=== PATIENT | female | born 1945 | race Caucasian/White ===

== ENCOUNTER 2022-08-12 13:54 | Emergency (ER) | payer MEDICARE, SELFPAY ==
[2022-08-12 14:03] VITALS: BP 149/66; PULSE 72; RESP 16; TEMP 36.8; O2SAT 97; BMI 24.7
--- NOTE | 2022-08-12 14:04 | HMH.EDGENADL ---
Discharge Plan Disposition Patient Disposition: Home, Self-Care Condition: Good Referrals Follow up/Referrals: Violette Benjamin MD [Primary Care Provider] - 7-14 days (for suture removal) Activity Restrictions/Add. Instructions Additional Instructions/Restrictions: keep wound clean and dry, and follow up in 7 days for suture removal in the ED or at your PCP office. Clinical Impressions Clinical Impression: Laceration Instructions Patient Instructions: DI for Laceration Repair Discharge ED Provider: Kirk Clark General Adult HPI General Chief complaint: Wound/Laceration Stated complaint: Sliced LT thumb w/ wire bound box machine helper @home 08/11 Time Seen by Provider: 08/12/22 14:04 History of Present Illness HPI narrative: 76-year-old [id number] female presents status post injury where she sliced the dorsum of her left thumb overlying the MCP with a wire bound box machine helper at home while breaking down boxes. Occurred just prior to arrival. States tetanus is up-to-date. There was moderate bleeding initially, and she reports she is on Coumadin. Currently bleeding is controlled, and there is about a 2 cm linear laceration at the base of the thumb. She denies any numbness, tingling, weakness of the thumb or hand denies any other injuries. Related Data Allergies Allergy/AdvReac Type Severity Reaction Status Date / Time No Known Allergies Allergy Verified 08/12/22 15:17 [facility] Social History Smoking Status: Never smoker alcohol intake: never current occupational status: other Travel in the last 8 weeks: None ROS Obtained: Yes Systems reviewed as appropriate & no additional complaints except as documented Constitutional Constitutional: Reports system reviewed and no additional complaints, except as documented Eyes Eyes: Reports system reviewed and no additional complaints, except as documented ENT Ears, Nose, Mouth, and Throat: Reports system reviewed and no additional complaints, except as documented Cardiovascular Cardiovascular: Reports system reviewed and no additional complaints, except as documented Respiratory Respiratory: Reports system reviewed and no additional complaints, except as documented Gastrointestinal Gastrointestingal: Reports system reviewed and no additional complaints, except as documented Genitourinary Female Genitourinary: Reports system reviewed and no additional complaints, except as documented Musculoskeletal Musculoskeletal: Reports system reviewed and no additional complaints, except as documented Integumentary/Breasts Skin/Breast: Reports system reviewed and no additional complaints, except as documented Neurologic Neurologic: Reports system reviewed and no additional complaints, except as documented Endocrine Endocrine: Reports system reviewed and no additional complaints, except as documented Hematologic/Lymphatic Henatologic/Lymphatic: Reports system reviewed and no additional complaints, except as documented Allergic/Immunologic Allergic/Immunologic: Reports system reviewed and no additional complaints, except as documented Physical Exam General General appearance: alert and in no apparent distress Head Head exam: atraumatic, normocephalic and normal inspection Eye Eye exam: Present normal appearance, PERRL and EOMI ENT ENT exam: Present normal exam, normal oropharynx, mucous membranes moist, TM's normal bilaterally and normal external ear exam Neck Neck exam: Present normal inspection, full ROM and trachea midline; Absent meningismus or lymphadenopathy Chest Chest inspection: Present normal inspection and symmetric chest wall rise; Absent tenderness Respiratory Respiratory exam: Present normal lung sounds bilaterally; Absent respiratory distress Cardiovascular Cardiovascular exam: Present regular rate and normal rhythm; Absent JVD Abdominal Exam Abdominal exam: Present soft and normal bowel sounds; Absent distention, tenderness o
[2022-08-12 16:02] VITALS: BP 135/65; PULSE 70; RESP 16; TEMP 36.8; O2SAT 98
== END 2022-08-12 16:04 | disposition home or self-care (01) ==
PROVIDERS: Emergency Provider Emergency Medicine; PCP Family Medicine
DX: S61.012A Laceration without foreign body of left thumb without damage to nail, initial encounter (principal); Z79.01 Long term (current) use of anticoagulants; W26.9XXA Contact with unspecified sharp object(s), initial encounter
CPT/HCPCS: 12001; 99283

== ENCOUNTER 2023-08-05 14:40 | Emergency (ER) | payer MEDICARE, SELFPAY ==
[2023-08-05 14:41] VITALS: BP 145/45; PULSE 65; RESP 21; TEMP 36.7; O2SAT 95; BMI 24.7
[2023-08-05 14:50] VITALS: BP 143/45; PULSE 59; O2SAT 95
--- NOTE | 2023-08-05 14:53 | CA_ITS ---
FINAL REPORT TECHNIQUE: Color Doppler, duplex Doppler and compression sonography of the right lower extremity venous system was performed. CLINICAL HISTORY: swelling of right foot x week without injury. Right hip pain COMPARISON: None FINDINGS: There is no evidence of deep venous thrombosis from the level of the groin to the calf. The veins are patent and compressible. IMPRESSION: No evidence of deep venous thrombosis right lower extremity. Reviewed, Interpreted and Dictated by Arturo Sigala III, MD Transcribed by Rica Bello Authenticated and [facility]
--- NOTE | 2023-08-05 14:54 | XR_ITS ---
FINAL REPORT CLINICAL HISTORY: Right ankle swelling/pain COMPARISON: None FINDINGS: RIGHT ANKLE: Three views of the right ankle were obtained. There is no acute fracture or dislocation. Joint spaces are intact. Vascular calcifications are noted. There is soft tissue swelling. IMPRESSION: Soft tissue swelling without acute bony abnormality. Reviewed, Interpreted and Dictated by Arturo Sigala III, MD Transcribed by Rica Bello Authenticated and [facility]
--- NOTE | 2023-08-05 14:54 | XR_ITS ---
FINAL REPORT CLINICAL HISTORY: Right foot swelling/pain COMPARISON: None FINDINGS: RIGHT FOOT: Three views of the right foot were obtained. There is no acute fracture or dislocation. There is mild degenerative change. Vascular calcifications are noted. IMPRESSION: No acute bony abnormality. Reviewed, Interpreted and Dictated by Arturo Sigala III, MD Transcribed by Rica Bello Authenticated and [facility]
--- NOTE | 2023-08-05 14:56 | HMH.EDGENADL ---
Discharge Plan Disposition Patient Disposition: Home, Self-Care Condition: Good Referrals Follow up/Referrals: Provider,Referral, [Primary Care Provider] - See instructions Activity Restrictions/Add. Instructions Additional Instructions/Restrictions: As discussed, your INR was elevated, we have elected, after discussion, to not get a sample of that fluid in your knee that we see, especially in light of your elevated INR, but I recommend you follow-up closely with your doctor and please return if you have worsening pain Clinical Impressions Clinical Impression: Localized swelling of right lower extremity, Acute pain of right lower extremity Instructions Patient Instructions: DI for Cellulitis -- Adult, DI for Deep Vein Thrombosis Discharge ED Provider: Espinoza Mayorga Adult HPI <Alana Cisneros DO - Last Filed: 08/05/23 15:48> General Chief complaint: Extremity Problem,Nontraumatic Stated complaint: Right leg pain Time Seen by Provider: 08/05/23 14:49 History of Present Illness HPI narrative: This patient is a 77-year-old female who reports a 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 She states that her right foot and ankle of been swollen for approximately 1 week. She denies any trauma, wounds, or other injuries. She states that it is become difficult to put weight on it, which prompted her to come into the ER today. She notes that she was experiencing similar symptoms in the left lower extremity approximate month ago, and she did not get evaluated for this. Her symptoms resolved spontaneously. She denies any fevers, chills, chest pain, shortness of breath, numbness, tingling, or other concerns. She is still able to range her foot and ankle. She denies any known history of gout. Related Data Allergies Allergy/AdvReac Type Severity Reaction Status Date / Time No Known Allergies Allergy Verified 08/12/22 15:17 PFSH <Alana Cisneros DO - Last Filed: 08/05/23 15:48> [facility] Disclaimer: The information contained in this section may have been updated after the patient was seen, as this information can be updated by other users. Social History Smoking Status: Former smoker alcohol intake: never current occupational status: other Travel in the last 8 weeks: None <Alana Cisneros - Last Filed: 08/05/23 15:48> ROS Obtained: Yes All systems reviewed & no additional complaints except as documented Physical Exam <Alana Cisneros - Last Filed: 08/05/23 15:48> General General appearance: alert and in no apparent distress Head Head exam: atraumatic and normocephalic Eye Eye exam: Present normal appearance, PERRL and EOMI ENT ENT exam: Present normal exam, normal oropharynx, mucous membranes moist and normal external ear exam Neck Neck exam: Present normal inspection, full ROM and trachea midline; Absent tenderness Chest Chest inspection: Present normal inspection and symmetric chest wall rise; Absent tenderness Respiratory Respiratory exam: Present normal lung sounds bilaterally; Absent respiratory distress, wheezes, stridor or accessory muscle use Cardiovascular Cardiovascular exam: Present regular rate and normal rhythm Abdominal Exam Abdominal exam: Present soft; Absent distention, tenderness or guarding Extremities Exam Extremities exam: Present full ROM, normal capillary refill and edema (Right lower extremity); Absent tenderness or calf tenderness Expanded Lower Extremity Exam Right: Hip/Pelvis exam: Present normal inspection and full ROM; Absent tenderness or swelling Upper leg exam: Present normal inspection and full ROM; Absent tenderness or swelling Knee exam: Present full ROM and swelling; Absent tenderness Lower leg exam: Present swelling; Absent tende
--- NOTE | 2023-08-05 15:07 | PC.NURSE ---
instructed patient to change into a gown; US @ .
[2023-08-05 16:03] LABS: Lactic Acid 1.3 mmol/L (0.7-2.1)
[2023-08-05 16:04] LABS: Alanine Aminotransferase 79 U/L (12-78); Albumin Level 3.9 g/dl (3.5-5.0); Albumin/Globulin Ratio 0.9 (1.1-1.8); Alkaline Phosphatase 135 U/L (38-126); Anion Gap 10.3 mEq/L (5-15); Aspartate Amino Transferase 104 U/L (14-36); Bilirubin,Total 0.8 mg/dl (0.2-1.3); Blood Urea Nitrogen 15 mg/dl (7-17); Calcium 9.3 mg/dl (8.4-10.2); Carbon Dioxide 27 mmol/L (22.0-30.0); Chloride 100 mmol/L (98-107); Creatinine Clearance Estimated 49 mL/min (50-200); Estimated Glomerular Filt Rate 82 ml/min (>60); GFR (African American) 99 ML/MIN (>60); Globulin 4.2 g/dL (1.3-3.2); Glucose 98 mg/dl (74-100); Potassium 3.3 mmoL/L (3.5-5.1); Sodium 134 mmol/L (136-145); Total Protein,Serum 8.1 g/dl (6.3-8.2); Uric Acid 5.5 mg/dl (2.5-6.2)
[2023-08-05 16:06] LABS: Basophils # 0.1 K/mm3 (0-0.2); Basophils % 0.5 % (0.1-2.0); Eosinophils # 0.2 K/mm3 (0.0-0.4); Eosinophils % 1.4 % (0.1-12.0); Hematocrit 37.8 % (37.0-47.0); Hemoglobin 11.6 g/dL (12.2-16.2); Lymphocytes # 2.4 K/mm3 (0.7-4.5); Lymphocytes % 20.3 % (10-50); Mean Corpuscular HGB Conc 30.8 g/dL (31.8-35.4); Mean Corpuscular Hemoglobin 24.9 pg (27.0-31.2); Mean Corpuscular Volume 80.8 fl (81-99); Mean Platelet Volume 9.5 fl (7.4-10.4); Neutrophils # 7.9 K/mm3 (1.8-7.8); Neutrophils % 68.7 % (37.0-80.0); Platelet Count 317 K/mm3 (142-424); Red Blood Count 4.68 M/mm3 (4.20-5.40); Red Cell Distribution Width 16.3 % (11.5-17.5); White Blood Count 11.5 K/mm3 (4.8-10.8)
[2023-08-05 16:30] LABS: INR 6.34 (0.9-1.1)
[2023-08-05 16:31] LABS: NT Pro Brain Natriuretic Pep. 756 pg/mL (0-450); Prothrombin Time 60.7 seconds (10.1-12.5)
[2023-08-05 16:37] VITALS: BP 129/57; PULSE 63; O2SAT 94
--- NOTE | 2023-08-05 16:37 | PC.NURSE ---
notified of PT of 60.7 and INR 6.34
--- NOTE | 2023-08-05 16:43 | PC.NURSE ---
Rounded on pt asked if she could have something to eat she was starving told her i would have to ask
--- NOTE | 2023-08-05 16:44 | PC.NURSE ---
said it was okay for pt to eat
--- NOTE | 2023-08-05 16:45 | PC.NURSE ---
Rounded on patient; call light within reach nothing needed at this time
--- NOTE | 2023-08-05 16:45 | PC.NURSE ---
Pt received two chicken salad sandwiches and bag of chips
[2023-08-05 16:59] LABS: Erythrocyte Sedimentation Rate 116 mm/hr (0-30)
[2023-08-05 17:01] VITALS: BP 134/44; PULSE 58; O2SAT 95
[2023-08-05 17:33] VITALS: BP 130/43; PULSE 70; RESP 17; TEMP 36.7; O2SAT 94
[2023-08-07 09:59] LABS: C-Reactive Protein 92.5 mg/L (0-4)
== END 2023-08-05 17:38 | disposition home or self-care (01) ==
PROVIDERS: Emergency Medicine; Emergency Provider Emergency Medicine
DX: M79.661 Pain in right lower leg (principal); R22.41 Localized swelling, mass and lump, right lower limb; R79.1 Abnormal coagulation profile; I10 Essential (primary) hypertension; E78.5 Hyperlipidemia, unspecified; Z95.2 Presence of prosthetic heart valve; Z79.01 Long term (current) use of anticoagulants; Z87.891 Personal history of nicotine dependence
CPT/HCPCS: 73610; 73630; 80053; 83605; 83880; 84550; 85025; 85610; 85651; 86140; 87040; 93971; 99284

== ENCOUNTER 2023-08-08 18:00 | Emergency (ER) | payer MEDICARE, SELFPAY ==
[2023-08-08] VITALS (7 sets, daily range): BP systolic 120–151; BP diastolic 40–66; PULSE 63–76; RESP 16–20; TEMP 36.9; O2SAT 92–98; BMI 23.0
--- NOTE | 2023-08-08 18:18 | PC.NURSE ---
Dr. Alejandra at BS for pt eval
[2023-08-08 18:24] LABS: Basophils # 0.1 K/mm3 (0-0.2); Basophils % 0.6 % (0.1-2.0); Eosinophils # 0.3 K/mm3 (0.0-0.4); Eosinophils % 2.3 % (0.1-12.0); Hematocrit 37.2 % (37.0-47.0); Hemoglobin 11.4 g/dL (12.2-16.2); Lymphocytes # 2.6 K/mm3 (0.7-4.5); Lymphocytes % 21.6 % (10-50); Mean Corpuscular HGB Conc 30.7 g/dL (31.8-35.4); Mean Corpuscular Volume 81.6 fl (81-99); Mean Platelet Volume 8.6 fl (7.4-10.4); Monocytes # 0.8 K/mm3 (0.1-1.0); Monocytes % 6.8 % (1.7-9.3); Neutrophils # 8.2 K/mm3 (1.8-7.8); Neutrophils % 68.6 % (37.0-80.0); Platelet Count 341 K/mm3 (142-424); Red Blood Count 4.56 M/mm3 (4.20-5.40); Red Cell Distribution Width 16.2 % (11.5-17.5); White Blood Count 11.9 K/mm3 (4.8-10.8)
--- NOTE | 2023-08-08 18:28 | HMH.EDGENADL ---
Discharge Plan Disposition Patient Disposition: Home, Self-Care Activity Restrictions/Add. Instructions Additional Instructions/Restrictions: Please hold 1 dose of Coumadin follow-up with ear nose and throat doctor on Wednesday to have your packing removed. A packet with the phone number for the ENT clinic has been provided please call first thing in the morning make an appointment on Wednesday or next available appointment. If you are unable to get in on Wednesday please follow-up the primary care doctor to have the packing removed. Return with any worsening bleeding. Additionally we have given you information for the Coumadin clinic you may call make an appointment for the next available timeframe. Clinical Impressions Clinical Impression: Acute anterior epistaxis, Supratherapeutic INR Instructions Patient Instructions: DI for Nosebleed Discharge ED Provider: Yuki Alejandra General Adult HPI General Chief complaint: Epistaxis Stated complaint: epistaxis Time Seen by Provider: 08/08/23 18:18 Mode of Arrival: EMS Source of Information: Patient Limitations: No Limitations Description of Symptoms (Recalled from ER Triage Doc. by RN): Presents to ED with c/o nosee bleed that started yesterday intermittently. Patient reports it started again today and has not stopped. Bleeding controlled upon arrival. Patient is on Warfarin. Last PT/INR check was wiht INR of 6. Denies any cardiac or respiratory symptoms. History of Present Illness HPI narrative: Patient is a 77-year-old female here with left anterior epistaxis from history after having a supratherapeutic INR of 6 recently. She did not hold any of her warfarin was not given any vitamin K products etc. Patient denies any bleeding elsewhere. She put some tissue into her left anterior nare which temporarily stopped her bleeding prior to arrival. Related Data Allergies Allergy/AdvReac Type Severity Reaction Status Date / Time No Known Allergies Allergy Verified 08/12/22 15:17 [facility] Disclaimer: The information contained in this section may have been updated after the patient was seen, as this information can be updated by other users. Social History Smoking Status: Former smoker alcohol intake: never current occupational status: other Travel in the last 8 weeks: None ROS Obtained: Yes All systems reviewed & no additional complaints except as documented Physical Exam General General appearance: alert ENT ENT exam: Present other (Left anterior septal active bleeding) Respiratory Respiratory exam: Present normal lung sounds bilaterally Cardiovascular Cardiovascular exam: Present regular rate; Absent tachycardia Neurological Exam Neurological exam: Present alert and oriented X3 Medical Decision Making Amol Inquiry Pt receiving controlled substance: No Vital Signs: 08/08/23 18:01 08/08/23 18:31 08/08/23 19:00 Temperature 98.5 F Temperature Source Oral Pulse Rate 76 64 Pulse Rate [Right] 63 Respiratory Rate 16 20 16 Blood Pressure 133/61 149/66 H Blood Pressure [Right Arm] 120/48 L Blood Pressure Mean 85 Blood Pressure Mean [Right Arm] 72 Blood Pressure Source [Right Arm] Automatic Cuff Blood Pressure Position [Right Arm] Sitting 02 Sat by Pulse Oximetry 92 L 96 96 Oxygen Delivery Method Room Air Room Air 08/08/23 20:00 08/08/23 20:02 08/08/23 20:31 Temperature Temperature Source Pulse Rate 64 66 72 Pulse Rate [Right] Respiratory Rate 18 16 17 Blood Pressure 149/66 H 149/66 H 134/42 L Blood Pressure [Right Arm] Blood Pressure Mean 93 72 Blood Pressure Mean [Right Arm] Blood Pressure Source [Right Arm] Blood Pressure Position [Right Arm] 02 Sat by Pulse Oximetry 96 98 98 Oxygen Delivery Method Room Air Room Air Lab Data Lab results reviewed: Yes I reviewed the patient's lab results. Lab Results 08/08/23 18:15: WBC 11.9 H,
[2023-08-08 18:30] LABS: INR 3.62 (0.9-1.1); Prothrombin Time 35.9 seconds (10.1-12.5)
--- OUTSIDE RECORDS SUMMARY | 2023-08-08 18:40 | XMS_ITS | Continuity of Care Document ---
Author Name Unknown Organization [facility] Address [address] [place] [address] Phone Care Team Providers Care Tracing Lathe Set Up Operator Name Role Phone Graeme Monroy MD Unavailable Unavailable Allergies, Adverse Reactions, Alerts Substance Reaction Status Criticality alendronate sodium makes stomach upset Active No Information Medications Medication Instructions Dosage Effective Dates (start - stop) Status Comments Vigamox 0.5 % eye drops instill 1 drop by ophthalmic route 4 times every day into the right eye starting 1 day prior to surgery. - Active Generic ok, please call if too expensive or not covered. Vigamox 0.5 % eye drops instill 1 drop by ophthalmic route 4 times every day into the left eye starting 1 day prior to surgery. - Active Generic ok - please call if too expensive or not covered. Pred Forte 1 % eye drops,suspension instill 1 drop by ophthalmic route 4 times every day into right eye starting 1 day prior to surgery - Active ok for generic if too expensive Pred Forte 1 % eye drops,suspension instill 1 drop by ophthalmic route 4 times every day into left eye starting 1 day prior to surgery - Active generic ok. Please call if too expensive or not covered. latanoprost 0.005 % eye drops instill 1 drop by ophthalmic route every evening into both eyes 1 drop - Active Refresh Tears 0.5 % eye drops instill 1 drop by ophthalmic route 4 times every day into both eyes 1 neelam
--- NOTE | 2023-08-08 18:46 | PC.NURSE ---
Pt concerned about her nose continuing to bleed. Dr. Alejandra notified.
--- NOTE | 2023-08-08 19:14 | PC.NURSE ---
patient assisted to dmitri james
--- NOTE | 2023-08-08 20:04 | PC.NURSE ---
V/O per MD for 2mg Morphine IVP
--- NOTE | 2023-08-08 20:08 | PC.NURSE ---
Rounded on patient; nothing needed at this time. Call light within reach of patient
--- NOTE | 2023-08-08 20:42 | PC.NURSE ---
Pain reassessment: patient is still complaining of 9/10 pain. MD notified
== END 2023-08-08 21:09 | disposition home or self-care (01) ==
PROVIDERS: Emergency Provider Student in an Organized Health Care Education/Training Program
DX: R04.0 Epistaxis (principal); R79.1 Abnormal coagulation profile; Z79.01 Long term (current) use of anticoagulants; Z95.2 Presence of prosthetic heart valve
CPT/HCPCS: 30903; 85025; 85610; 96374; 96375; 99284; J2405

== ENCOUNTER → 2023-08-10 11:59 | Outpatient (CLI) | payer MEDICARE, SELFPAY ==
[2023-08-10 12:41] LABS: Activated Partial Thrombo Time 53.1 seconds (22.8-30.6); INR 3.75 (0.9-1.1); Prothrombin Time 37.1 seconds (10.1-12.5)
== END ==
PROVIDERS: Visit Provider Nurse Practitioner
DX: R04.0 Epistaxis (principal); R79.1 Abnormal coagulation profile; M79.604 Pain in right leg
CPT/HCPCS: 36415; 85610; 85730

== ENCOUNTER 2023-08-20 12:48 | Outpatient (CLI) | payer MEDICARE, SELFPAY ==
[2023-08-20 13:55] LABS: Prothrombin Time 38.5 seconds (10.1-12.5)
[2023-08-20 14:08] LABS: PHA INR Fingerstick 4.3 (0.9-1.1)
== END 2023-08-20 14:16 ==
PROVIDERS: PCP Family Medicine; Visit Provider Family Medicine
DX: R79.1 Abnormal coagulation profile (principal); Z79.01 Long term (current) use of anticoagulants; Z51.81 Encounter for therapeutic drug level monitoring
CPT/HCPCS: 36415; 85610; 99211; G0463

== ENCOUNTER 2023-08-27 12:56 | Outpatient (CLI) | payer MEDICARE, SELFPAY ==
[2023-08-27 14:05] LABS: PHA INR Fingerstick 2.5 (0.9-1.1)
== END 2023-08-27 14:23 ==
LOC: ACC 12:58
PROVIDERS: PCP Family Medicine; Visit Provider Family Medicine
DX: R79.1 Abnormal coagulation profile (principal)
CPT/HCPCS: 85610; 99211; G0463

== ENCOUNTER 2023-09-10 11:31 | Outpatient (CLI) | payer MEDICARE, SELFPAY | END 2023-09-10 14:14 | LOC: ACC 11:31 | PROVIDERS: PCP Family Medicine; Visit Provider Family Medicine | DX: Z79.01 Long term (current) use of anticoagulants (principal); Z51.81 Encounter for therapeutic drug level monitoring | CPT/HCPCS: 85610; 99211; G0463 ==

== ENCOUNTER 2023-10-08 11:28 | Outpatient (CLI) | payer MEDICARE, SELFPAY ==
[2023-10-08 15:53] LABS: PHA INR Fingerstick 2.8 (0.9-1.1)
== END 2023-10-08 16:09 ==
LOC: ACC 11:29
PROVIDERS: PCP Family Medicine; Visit Provider Family Medicine
DX: Z79.01 Long term (current) use of anticoagulants (principal); Z51.81 Encounter for therapeutic drug level monitoring
CPT/HCPCS: 85610; 99211; G0463

== ENCOUNTER 2024-01-31 11:29 | Outpatient (CLI) | payer MEDICARE, SELFPAY ==
[2024-01-31 15:05] LABS: PHA INR Fingerstick 1.7 (0.9-1.1)
== END 2024-01-31 15:25 ==
LOC: ACC 11:31
PROVIDERS: PCP Family Medicine; Visit Provider Family Medicine
DX: Z79.01 Long term (current) use of anticoagulants (principal); Z51.81 Encounter for therapeutic drug level monitoring
CPT/HCPCS: 85610; 99211; G0463

== ENCOUNTER 2024-02-25 13:00 | Outpatient (CLI) | payer MEDICARE, SELFPAY ==
[2024-02-25 13:56] LABS: PHA INR Fingerstick 1.9 (0.9-1.1)
== END 2024-02-25 14:06 ==
LOC: ACC 13:01
PROVIDERS: PCP Family Medicine; Visit Provider Family Medicine
DX: Z79.01 Long term (current) use of anticoagulants (principal); Z51.81 Encounter for therapeutic drug level monitoring
CPT/HCPCS: 85610; 99211; G0463

== ENCOUNTER 2024-03-17 13:31 | Outpatient (CLI) | payer MEDICARE, SELFPAY ==
[2024-03-17 14:50] LABS: PHA INR Fingerstick 1.9 (0.9-1.1)
== END 2024-03-17 15:07 ==
PROVIDERS: PCP Family Medicine; Visit Provider Family Medicine
DX: Z79.01 Long term (current) use of anticoagulants (principal); Z51.81 Encounter for therapeutic drug level monitoring
CPT/HCPCS: 85610; 99211; G0463

== ENCOUNTER 2024-04-07 13:44 | Outpatient (CLI) | payer MEDICARE, SELFPAY | END 2024-04-07 15:03 | LOC: ACC 13:45 | PROVIDERS: PCP Family Medicine; Visit Provider Family Medicine | DX: Z79.01 Long term (current) use of anticoagulants (principal); Z95.2 Presence of prosthetic heart valve | CPT/HCPCS: 85610; 99211; G0463 ==

== ENCOUNTER 2024-06-12 14:38 | Outpatient (CLI) | payer MEDICARE, SELFPAY ==
[2024-06-12 21:29] LABS: Basophils # 0.1 K/mm3 (0-0.2); Basophils % 0.5 % (0.1-2.0); Eosinophils # 0.3 K/mm3 (0.0-0.4); Eosinophils % 2.1 % (0.1-12.0); Hematocrit 39.2 % (37.0-47.0); Hemoglobin 12.5 g/dL (12.2-16.2); Lymphocytes # 3.2 K/mm3 (0.7-4.5); Lymphocytes % 24.9 % (10-50); Mean Corpuscular HGB Conc 31.9 g/dL (31.8-35.4); Mean Corpuscular Hemoglobin 27.7 pg (27.0-31.2); Mean Corpuscular Volume 86.9 fl (81-99); Mean Platelet Volume 10.9 fl (7.4-10.4); Monocytes # 0.8 K/mm3 (0.1-1.0); Monocytes % 6.1 % (1.7-9.3); Neutrophils # 8.6 K/mm3 (1.8-7.8); Neutrophils % 66.4 % (37.0-80.0); Platelet Count 201 K/mm3 (142-424); Red Blood Count 4.51 M/mm3 (4.20-5.40); Red Cell Distribution Width 17.5 % (11.5-17.5); White Blood Count 12.9 K/mm3 (4.8-10.8)
[2024-06-12 21:53] LABS: Alanine Aminotransferase 19 U/L (12-78); Albumin Level 4.1 g/dl (3.5-5.0); Albumin/Globulin Ratio 1.1 (1.1-1.8); Alkaline Phosphatase 94 U/L (38-126); Anion Gap 10.4 mEq/L (5-15); Aspartate Amino Transferase 38 U/L (14-36); Bilirubin,Total 0.5 mg/dl (0.2-1.3); Blood Urea Nitrogen 14 mg/dl (7-17); Calcium 9.8 mg/dl (8.4-10.2); Carbon Dioxide 29 mmol/L (22.0-30.0); Chloride 102 mmol/L (98-107); Estimated Glomerular Filt Rate 70 ml/min (>60); GFR (African American) 84 ML/MIN (>60); Globulin 3.7 g/dL (1.3-3.2); Glucose 83 mg/dl (74-100); Potassium 4.4 mmoL/L (3.5-5.1); Sodium 137 mmol/L (136-145); Total Protein,Serum 7.8 g/dl (6.3-8.2)
== END 2024-06-12 23:59 | disposition home or self-care (01) ==
LOC: LAB.DROPOF 06-13 15:12
PROVIDERS: PCP Family Medicine; Visit Provider Family Medicine
DX: R53.1 Weakness (principal)
CPT/HCPCS: 80050; 80053; 84443; 85025

== ENCOUNTER 2024-07-17 13:04 | Emergency (ER) | payer MEDICARE, SELFPAY ==
[2024-07-17 13:04] VITALS: BP 163/82; PULSE 63; RESP 16; TEMP 36.7; O2SAT 90; BMI 23.6
--- NOTE | 2024-07-17 13:51 | PC.NURSE ---
Dr. Cisneros at bedside
--- NOTE | 2024-07-17 13:53 | HMH.EDGENADL ---
Discharge Plan Disposition Patient Disposition: Home, Self-Care Chief Complaint: Fall Prescriptions Prescriptions: No Action mirtazapine 7.5 mg tablet PO DAILY furosemide 40 mg tablet PO DAILY Patient Comments: TAKE 1 TABLET BY MOUTH ONCE DAILY. bupropion HCl 150 mg tablet extended release 24 hr PO DAILY potassium chloride 10 mEq tablet,ER particles/crystals PO oxybutynin chloride 5 mg tablet PO DAILY Patient Comments: TAKE 1 TABLET BY MOUTH 3 TIMES DAILY. losartan 25 mg tablet PO DAILY trazodone 100 mg tablet PO DAILY sucralfate 1 gram tablet PO ONCE atorvastatin 10 mg tablet PO DAILY Patient Comments: TAKE 1 TABLET BY MOUTH DAILY famotidine [Pepcid] 40 mg tablet 40 mg PO BID Qty: 180 3RF warfarin 4 mg tablet 4 mg PO DAILY Qty: 30 10RF Referrals Follow up/Referrals: Sawyer Betancourt MD [Primary Care Provider] - See instructions Clinical Impressions Clinical Impression: Fall, Acute pain of right hip, Low back pain, Multiple transverse process fractures, Closed wedge compression fracture of T6 vertebra Print Language Print Language: Icelandic Discharge ED Provider: Bijan Chao General Adult HPI <Alana Cisneros DO - Last Filed: 07/17/24 15:56> General Chief complaint: Fall Stated complaint: Pain Time Seen by Provider: 07/17/24 13:48 Mode of Arrival: EMS Source of Information: Patient Limitations: No Limitations Description of Symptoms (Recalled from ER Triage Doc. by RN): Reports tripping and falling last night and hitting her right hip on the bathtub. Complaint of right hip pain. History of Present Illness HPI narrative: This patient is a 78-year-old female with a history of mitral valve replacement with mechanical valve on Coumadin presenting to the emergency department for evaluation concern for low back and right hip pain after a mechanical ground-level fall that happened last night. She states that she went to the bathroom in the dark and she is not sure what she tripped on, but she fell. She did not hit her head or lose consciousness. She hit her right hip on the bathtub. She was well prior to this. She has not walked well since then. EMS arrived with the patient who noted she was stable en route Related Data Home Medications ?Medication ?Instructions ?Recorded ?Confirmed atorvastatin 10 mg tablet mg PO DAILY 08/10/23 06/26/24 bupropion HCl 150 mg 24 hr tablet, mg PO DAILY 10/10/23 08/26/24 extended release furosemide 40 mg tablet mg PO DAILY 08/10/23 06/26/24 losartan 25 mg tablet mg PO DAILY 08/10/23 06/26/24 mirtazapine 7.5 mg tablet mg PO DAILY 08/10/23 06/26/24 oxybutynin chloride 5 mg tablet mg PO DAILY 08/10/23 06/26/24 potassium chloride 10 mEq meq PO 08/10/23 06/26/24 tablet,extended release(part/cryst) sucralfate 1 gram tablet PO ONCE 08/10/23 06/26/24 trazodone 100 mg tablet mg PO DAILY 08/10/23 06/26/24 Previous Rx's ?Medication ?Instructions ?Recorded warfarin 4 mg tablet 4 mg PO DAILY #30 tabs 09/09/23 famotidine 40 mg tablet (Pepcid) 40 mg PO BID #180 tabs 06/26/24 Allergies Allergy/AdvReac Type Severity Reaction Status Date / Time No Known Allergies Allergy Verified 06/26/24 13:35 [facility] <Alana Cisneros DO - Last Filed: 07/17/24 15:56> [facility] Disclaimer: The information contained in this section may have been updated after the patient was seen, as this information can be updated by other users. Social History Smoking Status: Never smoker alcohol intake: never current occupational status: other Travel in the last 8 weeks: None <Alana Cisneros DO - Last Filed: 07/17/24 15:56> ROS Obtained: Yes All systems reviewed & no additional complaints except as documented Physical Exam <Alana Cisneros DO - Last Filed: 07/17/24 15:56> General General appearance: alert and in no apparent distress Head Head exam: atraumatic and normocephalic Eye Eye exam: Present normal appearance, PERRL and EOMI ENT ENT exam: Present normal exam, normal oropharynx, mucous membranes moist and normal external ear exam Neck Neck exam: Present normal inspection, full ROM and trachea midline; Absent tenderness Chest Chest inspection: Present normal inspection and symmetric chest wall rise; Absent tenderness Respiratory Respiratory exam: Present normal lung sounds bilaterally; Absent respiratory distress, wheezes, stridor or accessory muscle use Cardiovascular Cardiovascular exam: Present regular rate and normal rhythm Abdominal Exam Abdominal exam: Present soft; Absent distention, tenderness or guarding Extremities Exam Extremities exam: Present full ROM, tenderness (Right hip. All compartments soft. Neurovascularly intact distally.) and normal capillary refill; Absent edema Back Exam Back exam: Present full ROM and tenderness (Lumbar spine. No step-offs or deformities.) Neurological Exam Neurological exam: Present alert, oriented X3, CN II-XII intact and normal gait; Absent motor sensory deficit Psychiatric Psychiatric exam: Present normal affect and normal mood Skin Skin exam: Present warm and dry Medical Decision Making <Alana Cisneros, DO - Last Filed: 07/17/24 15:56> Medical Records Medical records reviewed: Yes I reviewed the patient's medical records. Amol Inquiry Pt receiving controlled substance: No Vital Signs: 07/17/24 13:04 07/17/24 16:55 Temperature 98.1 F Temperature Source Oral Pulse Rate 63 Pulse Rate [Radial] 63 Respiratory Rate 16 18 Blood Pressure 171/63 H Blood Pressure [Left Arm] 163/82 H Blood Pressure Mean [Left Arm] 109 Blood Pressure Source [Left Arm] Automatic Cuff Blood Pressure Position [Left Arm] Supine 02 Sat by Pulse Oximetry 90 L Oxygen Delivery Method Room Air Lab Data Lab results reviewed: Yes I reviewed the patient's lab results. Lab Results 07/17/24 14:21: WBC 11.9 H, RBC 4.40, Hgb 11.1 L, Hct 36.7 L, MCV 83.4, MCH 25.1 L, MCHC 30.1 L, RDW 17.7 H, Plt Count 177, MPV 9.6, Neut % (Auto) 79.3, Lymph % (Auto) 13.9, [place] % (Auto) 5.3, Eos % (Auto) 0.9, Baso % (Auto) 0.6, Neut # (Auto) 9.5 H, Lymph # (Auto) 1.7, [place] # (Auto) 0.6, Eos # (Auto) 0.1, Baso # (Auto) 0.1, PT 17.0 H, INR 1.59 H, APTT 33.0 H, Sodium 137, Potassium 3.7, Chloride 109 H, Carbon Dioxide 27, Anion Gap 4.7 L, BUN 11, Creatinine 0.60, Estimated Creat Clear 47, Estimated GFR 97, Est GFR ( Amer) 118, Glucose 92, Calcium 9.0, Total Bilirubin 0.7, AST 39 H, ALT 20, Alkaline Phosphatase 91, Total Protein 7.0, Albumin 3.8, Globulin 3.2, Albumin/Globulin Ratio 1.2 07/17/24 14:21 07/17/24 14:21 Orders (Tests/Meds): ED MEDICATIONS Discontinued Medications Generic Name Dose Route Start Last Admin Trade Name Freq PRN Reason Stop Dose Admin Hydrocodone Bitart/Acetaminophen 1 tab 07/17/24 15:11 07/17/24 15:13 Hydrocodone/Apap 5/325 Mg Tablet PO 07/17/24 15:12 1 tab ONCE ONE Administration ORDERS Category Date Time Status CT bony pelvis Stat Cat Scan 07/17/24 14:[address] cervical spine wo con Stat Cat Scan 07/17/24 14:[address] head/brain wo con Stat Cat Scan 07/17/24 14:[address] lumbar spine wo con Stat Cat Scan 07/17/24 14:[address] thoracic spine wo con Stat Cat Scan 07/17/24 14:01 Completed Femur XR right 2 views [XR femur RT 2V] Stat Exams 07/17/24 14:01 Completed Knee XR right 3 views [XR knee RT 3V] Stat Exams 07/17/24 14:01 Completed XR pelvis 1-2V Stat Exams 07/17/24 14:01 Completed Complete Blood Count Auto Diff Stat Lab 07/17/24 14:21 Completed Comprehensive Metabolic Panel Stat Lab 07/17/24 14:21 Completed PT INR [Prothrombin Time INR] Stat Lab 07/17/24 14:21 Completed PTT [Activated Partial Thrombo Time] Stat Lab 07/17/24 14:21 Completed Medical Decision Narrative: In summary, this patient is a 78-year-old female presenting to the Emergency Department for evaluation of right hip and low back pain after a mechanical ground-level fall. Differential diagnoses considered include but are not limited to fracture, contusion, strain/pain, intracranial hemorrhage, polytrauma. Ruling out the most morbid conditions drove assessment. It should be noted patient's history includes mitral valve replacement on Coumadin which may or may not be at goal therapy. This complicates all aspects of care by increasing patient's risk for morbidity. On exam, the patient is resting comfortably and is neurologically intact. She has low back and right hip pain but is neurovascularly intact in her extremities. No alarm findings or symptoms to suggest cauda equina syndrome or spinal cord compression. Workup included CT scan of the head, spines, bony pelvis, and x-rays of the right lower extremity. Given she is on Coumadin, basic labs including coags were obtained.. Labs are reassuring. Imaging reads pending. Patient care signed out the oncoming provider, Dr. Chao. <Bijan Chao MD - Last Filed: 07/17/24 17:27> Vital Signs: 07/17/24 13:04 07/17/24 16:55 Temperature 98.1 F Temperature Source Oral Pulse Rate 63 Pulse Rate [Radial] 63 Respiratory Rate 16 18 Blood Pressure 171/63 H Blood Pressure [Left Arm] 163/82 H Blood Pressure Mean [Left Arm] 109 Blood Pressure Source [Left Arm] Automatic Cuff Blood Pressure Position [Left Arm] Supine 02 Sat by Pulse Oximetry 90 L Oxygen Delivery Method Room Air Lab Data Lab Results 07/17/24 14:21: WBC 11.9 H, RBC 4.40, Hgb 11.1 L, Hct 36.7 L, MCV 83.4, MCH 25.1 L, MCHC 30.1 L, RDW 17.7 H, Plt Count 177, MPV 9.6, Neut % (Auto) 79.3, Lymph % (Auto) 13.9, [place] % (Auto) 5.3, Eos % (Auto) 0.9, Baso % (Auto) 0.6, Neut # (Auto) 9.5 H, Lymph # (Auto) 1.7, [place] # (Auto) 0.6, Eos # (Auto) 0.1, Baso # (Auto) 0.1, PT 17.0 H, INR 1.59 H, APTT 33.0 H, Sodium 137, Potassium 3.7, Chloride 109 H, Carbon Dioxide 27, Anion Gap 4.7 L, BUN 11, Creatinine 0.60, Estimated Creat Clear 47, Estimated GFR 97, Est GFR ( Amer) 118, Glucose 92, Calcium 9.0, Total Bilirubin 0.7, AST 39 H, ALT 20, Alkaline Phosphatase 91, Total Protein 7.0, Albumin 3.8, Globulin 3.2, Albumin/Globulin Ratio 1.2 Orders (Tests/Meds): ED MEDICATIONS Discontinued Medications Generic Name Dose Route Start Last Admin Trade Name Stephany PRN Reason Stop Dose Admin Hydrocodone Bitart/Acetaminophen 1 tab 07/17/24 15:11 07/17/24 15:13 Hydrocodone/Apap 5/325 Mg Tablet PO 07/17/24 15:12 1 tab ONCE ONE Administration ORDERS Category Date Time Status CT bony pelvis Stat Cat Scan 07/17/24 14:[address] cervical spine wo con Stat Cat Scan 07/17/24 14:[address] head/brain wo con Stat Cat Scan 07/17/24 14:[address] lumbar spine wo con Stat Cat Scan 07/17/24 14:[address] thoracic spine wo con Stat Cat Scan 07/17/24 14:01 Completed Femur XR right 2 views [XR femur RT 2V] Stat Exams 07/17/24 14:01 Completed Knee XR right 3 views [XR knee RT 3V] Stat Exams 07/17/24 14:01 Completed XR pelvis 1-2V Stat Exams 07/17/24 14:01 Completed Complete Blood Count Auto Diff Stat Lab 07/17/24 14:21 Completed Comprehensive Metabolic Panel Stat Lab 07/17/24 14:21 Completed PT INR [Prothrombin Time INR] Stat Lab 07/17/24 14:21 Completed PTT [Activated Partial Thrombo Time] Stat Lab 07/17/24 14:21 Completed Medical Decision Narrative: In summary, this patient is a 78-year-old female presenting to the Emergency Department for evaluation of right hip and low back pain after a mechanical ground-level fall. Differential diagnoses considered include but are not limited to fracture, contusion, strain/pain, intracranial hemorrhage, polytrauma. Ruling out the most morbid conditions drove assessment. It should be noted patient's history includes mitral valve replacement on Coumadin which may or may not be at goal therapy. This complicates all aspects of care by increasing patient's risk for morbidity. On exam, the patient is resting comfortably and is neurologically intact. She has low back and right hip pain but is neurovascularly intact in her extremities. No alarm findings or symptoms to suggest cauda equina syndrome or spinal cord compression. Workup included CT scan of the head, spines, bony pelvis, and x-rays of the right lower extremity. Given she is on Coumadin, basic labs including coags were obtained.. Labs are reassuring. Imaging reads pending. Patient care signed out the oncoming provider, Dr. Chao. Bijan Chao: Upon assumption of care patient is hemodynamically stable. Workup is reviewed by me, hematologic labs are largely nonactionable, patient is anticoagulated which is known, no RICARDO or critical electrolyte abnormality, no significant leukocytosis. Upon questioning patient fell on her way to the bathroom and landed on her butt and back against the edge of the tub. She did not strike her head, chest, abdomen. She has no extremity pain. All the pain is centered in her back and is worse with movement. Trauma survey reviewed by me, fractures of L1-L3 transverse processes, T12 transverse process fracture, age-indeterminate T6 compression fracture with at least 50% vertebral body height loss for which she is tender and symptomatic I favor acute. There is a transitional vertebra T12. Given age and projected course as well as greater than 50% height loss she will benefit to her tertiary care center with trauma and spine. Case was discussed with Dr. Kelly [facility] graciously accepted patient for transfer for continued evaluation at this time. Critical Care <Alana Cisneros, DO - Last Filed: 07/17/24 15:56> Critical Care Time Critical Care Time: No
--- NOTE | 2024-07-17 14:01 | CT_ITS ---
FINAL REPORT CLINICAL HISTORY: fall >65 on coumadin FINDINGS: Axial CT images of the thoracic spine were obtained without contrast. Sagittal and coronal reformatted images were also obtained. This study was performed with techniques to keep radiation doses as low as reasonably achievable (ALARA). Individualized dose reduction techniques using automated exposure control or adjustment of mA and/or kV according to the patient''s size were employed. There is an age-indeterminate T6 compression fracture with at least 50% of vertebral body height anteriorly. There is a transitional vertebra at T12. There is a very small fracture of the right T12 transverse process which is likely acute. No additional thoracic spine fracture is seen. Bilateral groundglass opacities are seen in the lungs edema is favored. Otherwise no acute paraspinal abnormality identified. IMPRESSION: Age-indeterminate T6 compression fracture. Consider MRI. Transitional type vertebrae with T12 transverse process fracture, favor acute. Reviewed, Interpreted and Dictated by Bindu Andrew MD Transcribed by Marnie Perez Authenticated and [facility]
--- NOTE | 2024-07-17 14:01 | CT_ITS ---
FINAL REPORT TECHNIQUE: Axial images through the pelvis were performed by computed tomography. Sagittal and coronal reconstruction images were performed. This study was performed with techniques to keep radiation doses as low as reasonably achievable (ALARA). Individualized dose reduction techniques using automated exposure control or adjustment of mA and/or kV according to the patient's size were employed. CLINICAL HISTORY: fall >65 on coumadin COMPARISON: None FINDINGS: No acute fractures identified of the pelvis or either hip. No dislocation identified. Degenerative joint disease is noted in the SI joints and bilateral hips. There is no acute soft tissue abnormality. IMPRESSION: No acute process. Reviewed, Interpreted and Dictated by Bindu Andrew MD Transcribed by Rica Bello Authenticated and [facility]
--- NOTE | 2024-07-17 14:01 | CT_ITS ---
FINAL REPORT TECHNIQUE: Thin section axial images were obtained through the cervical spine without contrast. Multiplanar reconstruction images were obtained from the axial data. Exam was performed using dose reduction techniques. CLINICAL HISTORY: fall >65 on coumadin FINDINGS: There is no acute fracture or acute malalignment of the cervical spine. There is no evidence of unilateral or bilateral facet lock. Craniocervical junction is intact. There is multilevel degenerative disc disease. Vertebral body height is preserved. Note is made of a hypodense thyroid nodule. Limited evaluation of the lung apices demonstrates bilateral groundglass opacities with several small nodules. IMPRESSION: No acute osseous abnormality of the cervical spine. Possible edema at the lung apices. Reviewed, Interpreted and Dictated by Bindu Andrew MD Transcribed by Marnie Perez Authenticated and [facility]
--- NOTE | 2024-07-17 14:01 | XR_ITS ---
FINAL REPORT CLINICAL HISTORY: fall >65 on coumadin COMPARISON: None FINDINGS: PELVIS/RIGHT HIP: A single view of the pelvis and frog-leg view of the right hip were obtained. Right hip images are included in the right femur study. There is no acute fracture or dislocation. Mild degenerative disease is noted of the right hip. Soft tissues are unremarkable. IMPRESSION: No acute bony abnormality. Reviewed, Interpreted and Dictated by Bindu Andrew MD Transcribed by Krystin Swartz Authenticated and [facility]
--- NOTE | 2024-07-17 14:01 | XR_ITS ---
FINAL REPORT CLINICAL HISTORY: fall >65 on coumadin COMPARISON: None FINDINGS: Two views of the right femur were obtained. There is no acute fracture or dislocation. The joint spaces are well-preserved. There is no acute soft tissue abnormality. IMPRESSION: No acute abnormality identified. Reviewed, Interpreted and Dictated by Bindu Andrew MD Transcribed by Krystin Swartz Authenticated and [facility]
--- NOTE | 2024-07-17 14:01 | XR_ITS ---
FINAL REPORT CLINICAL HISTORY: fall >65 on coumadin FINDINGS: AP, lateral and oblique views of the right knee were obtained. There is no prior exam for comparison. There is no acute osseous abnormality or dislocation of the right knee. There is degenerative joint disease and chondrocalcinosis. Osteopenia is noted. The soft tissues are normal. There is no joint effusion. IMPRESSION: No acute osseous abnormality of the right knee. Reviewed, Interpreted and Dictated by Bindu Andrew MD Transcribed by Krystin Swartz Authenticated and [facility]
--- NOTE | 2024-07-17 14:01 | CT_ITS ---
FINAL REPORT TECHNIQUE: Thin section axial images were obtained from skull base to vertex without contrast. Coronal reconstruction images were obtained from the axial data. Exam was performed using dose reduction technique. CLINICAL HISTORY: fall >65 on coumadin FINDINGS: There is age-appropriate atrophy. There is no mass effect or midline shift. There is no intracranial hemorrhage. There is no hydrocephalus. The basilar cisterns are preserved. The posterior fossa is without acute abnormality. The soft tissues are without acute abnormality. No acute osseous abnormality is identified. IMPRESSION: No acute intracranial abnormality. Atrophy. Reviewed, Interpreted and Dictated by Bindu Andrew MD Transcribed by Marnie Perez Authenticated and [facility]
--- NOTE | 2024-07-17 14:01 | CT_ITS ---
FINAL REPORT TECHNIQUE: Axial imaging of the lumbar spine was obtained without contrast. Reformatted images were also obtained and reviewed.This study was performed with techniques to keep radiation doses as low as reasonably achievable, (ALARA). Individualized dose reduction techniques using automated exposure control or adjustment of mA and/or kV according to the patient's size were employed. CLINICAL HISTORY: fall >65 on coumadin FINDINGS: There are acute fractures of the right L1, L2 and L3 transverse processes. No fracture is seen of a lumbar vertebrae. Vertebral body height is preserved. Alignment is normal. There is mild multilevel degenerative disc disease. The vertebra are normal height. There is no malalignment. Facets are properly aligned. Prevertebral soft tissues unremarkable. IMPRESSION: Fractures of the right L1-L3 transverse processes. Reviewed, Interpreted and Dictated by Bindu Andrew MD Transcribed by Marnie Perez Authenticated and [facility]
[2024-07-17 14:32] LABS: Basophils # 0.1 K/mm3 (0-0.2); Basophils % 0.6 % (0.1-2.0); Eosinophils # 0.1 K/mm3 (0.0-0.4); Eosinophils % 0.9 % (0.1-12.0); Hematocrit 36.7 % (37.0-47.0); Hemoglobin 11.1 g/dL (12.2-16.2); Lymphocytes # 1.7 K/mm3 (0.7-4.5); Lymphocytes % 13.9 % (10-50); Mean Corpuscular HGB Conc 30.1 g/dL (31.8-35.4); Mean Corpuscular Hemoglobin 25.1 pg (27.0-31.2); Mean Corpuscular Volume 83.4 fl (81-99); Mean Platelet Volume 9.6 fl (7.4-10.4); Monocytes # 0.6 K/mm3 (0.1-1.0); Monocytes % 5.3 % (1.7-9.3); Neutrophils # 9.5 K/mm3 (1.8-7.8); Neutrophils % 79.3 % (37.0-80.0); Platelet Count 177 K/mm3 (142-424); Red Cell Distribution Width 17.7 % (11.5-17.5); White Blood Count 11.9 K/mm3 (4.8-10.8)
[2024-07-17 14:39] LABS: INR 1.59 (0.9-1.1)
[2024-07-17 14:43] LABS: Albumin Level 3.8 g/dl (3.5-5.0); Chloride 109 mmol/L (98-107); Potassium 3.7 mmoL/L (3.5-5.1); Sodium 137 mmol/L (136-145)
[2024-07-17 14:46] LABS: Alanine Aminotransferase 20 U/L (12-78); Albumin/Globulin Ratio 1.2 (1.1-1.8); Alkaline Phosphatase 91 U/L (38-126); Anion Gap 4.7 mEq/L (5-15); Aspartate Amino Transferase 39 U/L (14-36); Bilirubin,Total 0.7 mg/dl (0.2-1.3); Blood Urea Nitrogen 11 mg/dl (7-17); Carbon Dioxide 27 mmol/L (22.0-30.0); Creatinine Clearance Estimated 47 mL/min (50-200); Estimated Glomerular Filt Rate 97 ml/min (>60); GFR (African American) 118 ML/MIN (>60); Globulin 3.2 g/dL (1.3-3.2)
[2024-07-17 14:47] LABS: Glucose 92 mg/dl (74-100)
[2024-07-17] MEDS: HYDROCODONE/APAP 5/325 MG TABLET 1 TAB PO (15:13)
[2024-07-17 16:55] VITALS: BP 171/63; PULSE 63; RESP 18
--- NOTE | 2024-07-17 17:15 | PC.NURSE ---
Spoke to tx center regarding tx of pt to them. They advised the Dr there is finishing up another case and will call us back soon
[2024-07-17] MEDS: ONDANSETRON 4MG/2ML VIAL 4 MG IV (17:33)
[2024-07-17] MEDS: MORPHINE 4MG/ML SYRINGE 4 MG IV (17:33)
--- NOTE | 2024-07-17 17:36 | PC.NURSE ---
Report called to [facility] at [facility].
[2024-07-17] MEDS: METHOCARBAMOL 500MG TABLET 500 MG PO (17:52)
--- NOTE | 2024-07-17 18:06 | ECG_ITS ---
APPROVED REPORT Exam: Resting ECG HR:60 bpm ECG Measurements Heart Rate 60 AXES NE 168 P 88 QRSd 87 QRS 83 QT 427 T 65 QTc 427 Conclusion SINUS RHYTHM NORMAL ECG UNCONFIRMED REPORT Electronically signed by : CLEMENTINE NINO, 07/21/2024 06:40:49
[2024-07-17 18:20] VITALS: BP 171/63; PULSE 63; RESP 18; TEMP 36.6; O2SAT 93
== END 2024-07-17 18:21 | disposition short-term general hospital (02) ==
PROVIDERS: Emergency Medicine; Emergency Provider Emergency Medicine; PCP Family Medicine
DX: S22.050A Wedge compression fracture of T5-T6 vertebra, initial encounter for closed fracture (principal); S32.018A Other fracture of first lumbar vertebra, initial encounter for closed fracture; S32.028A Other fracture of second lumbar vertebra, initial encounter for closed fracture; S32.038A Other fracture of third lumbar vertebra, initial encounter for closed fracture; S22.088A Other fracture of T11-T12 vertebra, initial encounter for closed fracture; M25.551 Pain in right hip; M54.50 Low back pain, unspecified; W19.XXXA Unspecified fall, initial encounter; Z95.2 Presence of prosthetic heart valve; Z79.01 Long term (current) use of anticoagulants
CPT/HCPCS: 70450; 72125; 72128; 72131; 72170; 72192; 73552; 73562; 80053; 85025; 85610; 85730; 93005; 96374; 96375; 99285; J2270; J2405

== ENCOUNTER 2024-11-29 09:34 | Outpatient (CLI) | payer MEDICARE, SELFPAY ==
[2024-11-29 18:01] LABS: Basophils # 0.1 K/mm3 (0-0.2); Basophils % 0.8 % (0.1-2.0); Eosinophils # 0.3 K/mm3 (0.0-0.4); Eosinophils % 2.1 % (0.1-12.0); Hemoglobin 11.6 g/dL (12.2-16.2); Lymphocytes # 2.6 K/mm3 (0.7-4.5); Lymphocytes % 21.5 % (10-50); Mean Corpuscular HGB Conc 29.7 g/dL (31.8-35.4); Mean Corpuscular Hemoglobin 23.7 pg (27.0-31.2); Mean Corpuscular Volume 79.6 fl (81-99); Mean Platelet Volume 12.3 fl (7.4-10.4); Monocytes % 8.7 % (1.7-9.3); Neutrophils # 7.9 K/mm3 (1.8-7.8); Neutrophils % 66.4 % (37.0-80.0); Platelet Count 216 K/mm3 (142-424); Red Cell Distribution Width 17.2 % (11.5-17.5); White Blood Count 11.9 K/mm3 (4.8-10.8)
[2024-11-29 18:02] LABS: INR 1.56 (0.9-1.1); Prothrombin Time 16.4 seconds (9.2-12.1)
[2024-11-29 18:32] LABS: Alanine Aminotransferase 20 U/L (12-78); Albumin Level 4.2 g/dl (3.5-5.0); Albumin/Globulin Ratio 1.2 (1.1-1.8); Alkaline Phosphatase 125 U/L (38-126); Anion Gap 12.3 mEq/L (5-15); Aspartate Amino Transferase 37 U/L (14-36); Bilirubin,Total 0.3 mg/dl (0.2-1.3); Blood Urea Nitrogen 13 mg/dl (7-17); Calcium 9.6 mg/dl (8.4-10.2); Carbon Dioxide 29 mmol/L (22.0-30.0); Chloride 101 mmol/L (98-107); Estimated Glomerular Filt Rate 61 ml/min (>60); GFR (African American) 73 ML/MIN (>60); Globulin 3.4 g/dL (1.3-3.2); Glucose 76 mg/dl (74-100); Potassium 4.3 mmoL/L (3.5-5.1); Sodium 138 mmol/L (136-145); Total Protein,Serum 7.6 g/dl (6.3-8.2)
== END 2024-11-29 23:59 | disposition home or self-care (01) ==
LOC: LAB.DROPOF 11-30 09:34
PROVIDERS: PCP Family Medicine; Visit Provider Family Medicine
DX: S22.050A Wedge compression fracture of T5-T6 vertebra, initial encounter for closed fracture (principal)
CPT/HCPCS: 80053; 85025; 85610

== ENCOUNTER 2025-03-12 15:41 | Outpatient (CLI) | payer MEDICARE, SELFPAY ==
[2025-03-12 18:53] LABS: INR 1.44 (0.9-1.1); Prothrombin Time 15.6 seconds (10.1-12.5)
== END 2025-03-12 23:59 | disposition home or self-care (01) ==
LOC: LAB.DROPOF 03-13 13:14
PROVIDERS: PCP Family Medicine; Visit Provider Family Medicine
DX: Z79.01 Long term (current) use of anticoagulants (principal); M54.50 Low back pain, unspecified
CPT/HCPCS: 85610

== ENCOUNTER 2025-03-23 12:47 | Outpatient (CLI) | payer MEDICARE, SELFPAY ==
[2025-03-23 14:30] LABS: PHA INR Fingerstick 2.8 (0.9-1.1)
== END 2025-03-23 14:36 ==
LOC: ACC 12:48
PROVIDERS: PCP Family Medicine; Visit Provider Family Medicine
DX: Z79.01 Long term (current) use of anticoagulants (principal); Z95.2 Presence of prosthetic heart valve
CPT/HCPCS: 85610; 99211; G0463

== ENCOUNTER 2025-04-27 14:04 | Outpatient (CLI) | payer MEDICARE, SELFPAY ==
--- OUTSIDE RECORDS SUMMARY | 2025-04-27 14:06 | XMS_ITS | Encounter Summary ---
Author Organization [facility] Address [place] [address] Care Team Providers Care Eyeglass Maker Name Role Phone Mulu Clements RN Unavailable UnavailHelga Hall RN Unavailable Kev Ann MD Primary Care Provider [phone] Elda Hurt MD Primary Care Provider Violette Benjamin MD Primary Care Provider [phone] Reason for Referral * (Routine) - Closed Specialty Diagnoses / Procedures Referred By Contac t Referred To Contact Diagnoses Pathologic fracture of vertebrae, initial encounter Osteoporosis, unspecified Procedures IR GUIDED PERCUTANEOUS VERTEBROPLASTY THORACIC Chioma Fair PA-C Referral ID Status Reason Start Date Expiration Date Visits Re quested Visits Authorized [id number] Closed 09/24/2014 09/24/2015 1 1 Encounter Details Date Type Department Care Team (Latest Contact Info) Description 09/24/2014 Pre-Imaging Procedure [facility]G XRAY [facility] [address] [place] [id number] Chioma Fair PA-C Pathologic fracture of vertebrae, initial encounter (HCC) (Primary Dx); Osteoporosis, unspecified Social History Tobacco Use Types Packs/Day Years Used Date Smoking Tobacco: Former Cigarettes 1 30 0 06/10/1980 - 06/10/2010 Smokeless Tobacco: Never Quit: 08/12/2010 Alcohol Use Standard Drinks/Week Comments No 0 (1 standard drink = 0.6 oz pur e alcohol) Sexually Active Control Partners Comments Never Comments No Sex and Gender Information Value Date Recorded Sex Assigned at Not on file Legal Sex Female 9:11 PM EDT Gender Identity Not on file Sexual Orientation Not on file documented as of this encounter Plan of Treatment Scheduled Orders Name Type Priority Associated Diagnoses Orde r Schedule IR GUIDED PERCUTANEOUS VERTEBROPLASTY THORACIC Imaging Routine Pathologic fracture of vertebrae, initial encounter ([facility]) Osteoporosis 1 Occurrences starting 09/24/2014 until 09/24/2015 documented as of this encounter Visit Diagnoses Diagnosis Pathologic fracture of vertebrae, initial encounter- Primary Osteoporosis, unspecified documented in this encounter Additional Health Concerns Infection Onset Date Last Indicated Resolved Time R/O COVID-19 01/02/2021 01/02/2021 01/02/2021 4:02 PM EST documented as of this encounter Care Teams Eyeglass Maker Relationship Specialty Start Date End Date Kev Sosa MD [address] [place] [address] PCP - General Internal Medicine 10/21/17 05/19/18 Elda Hurt MD [address] [place] [address] PCP - General Family Medicine 07/11/18 04/25/19 Violette Benjamin MD [address] [place] [address] PCP - General Family Medicine 04/26/19 Mulu Clements, swager operator Team Registered Nurse 02/18/15 Helga Armenta, [facility] Registered Nurse 02/20/1506/11 documented as of this encounter
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
--- OUTSIDE RECORDS SUMMARY | 2025-04-27 14:06 | XMS_ITS | Encounter Summary ---
Author Organization [facility] [place] [address] Care Team Providers Care Bundler Seasonal Greenery Name Role Phone Mulu Clements RN Unavailable UnavailHelga Hall RN Unavailable Kev Ann MD Primary Care Provider [phone] Elda Hurt MD Primary Care Provider [phone] Violette Benjamin MD Primary Care Provider [phone] Reason for Referral * MRI/CAT Scan (Routine) - Closed Specialty Diagnoses / Procedures Referred By Contac t Referred To Contact Radiology Diagnoses Pathologic fracture of vertebrae, with delayed healing, subsequent encounter Procedures MRI THORACIC SPINE WO CONTRAST Mehrdad Webster MD Phone: tel: fax: Referral ID Status Reason Start Date Expiration Date Visits Re quested Visits Authorized [id number] Closed 11/07/2014 11/07/2015 1 1 Encounter Details Date Type Department Care Team (Latest Contact Info) Description 11/07/2014 Pre-Imaging Procedure Adult Med [address] [place], [place] [id number] Sarahy Boss, REN Pathologic fracture of vertebrae, with delayed healing, subsequent encounter (Primary Dx) Social History Tobacco Use Types [...] Type Priority Associated Diagnoses Orde r Schedule MRI THORACIC SPINE WO CONTRAST Imaging Routine Pathologic fracture of vertebrae, with delayed healing, subsequent encounter 1 Occurrences starting 11/07/2014 until 11/07/2015 documented as of this encounter Visit Diagnoses Diagnosis Pathologic fracture of vertebrae, with delayed healing, subsequent encounter- Primary documented in this encounter Additional Health Concerns Infection Onset Date Last Indicated Resolved Time R/O COVID-19 01/02/2021 01/02/2021 01/02/2021 4:02 PM EST documented as of this encounter Care Teams Bundler Seasonal [place]ery Relationship Specialty Start Date End Date Kev Sosa [place] [address] PCP - General Internal Medicine 10/21/17 05/19/18 Elda Hurt MD [address] [place] [address] PCP - General Family Medicine 07/11/18 04/25/19 Violette Benjamin MD [address] [place] [address] PCP - General Family Medicine 04/26/19 Mulu Clements, trolley collector Team Registered Nurse 02/18/15 Helga Armenta, REN Health Advocate Registered Nurse 02/20/1506/11 documented as of this encounter
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
--- OUTSIDE RECORDS SUMMARY | 2025-04-27 14:08 | XMS_ITS | Encounter Summary ---
Author Organization [facility] Address [address] [place] [address] Care Team Providers Care Corporate Administrator Name Role Phone Violette Benjamin MD Primary Care Provider + [phone] Provider, Historical Unavailable Unavailable Kolton Jarrell DO Unavailable [phone] Oralia Mei MD Unavailable [phone] Chad Antonio MD Unavailable [phone] Reason for Visit * Reason Comments Medications Refill Encounter Details Date Type Department Care Team (Late st Contact Info) Description 04/15/2022 Refill [facility] Physicians - Primary CareAlyssia [address] [place] [address] [place] [address] Violette Benjamin MD [address] [facility] [place] [address] Medications Refill Social History Tobacco Use Types Packs/Day Years Used Date Smoking Tobacco: Former Smokeless Tobacco: Never Alcohol Use Standard Drinks/Week Comments No 0 (1 standard drink = 0.6 oz pur e alcohol) PHQ-2 Answer Date Recorded PHQ-9 Auto Total 0 09/02/2021 Comments No Sex and Gender Information Value Date Recorded Sex Assigned at Not on file Legal Sex Female 4:49 PM EDT Gender Identity Not on file Sexual Orientation Not on file documented as of this encounter Miscellaneous Notes * Telephone Encounter - Melisa Kam - 04/15/2022 10:20 AM EDT Lvm for pt * Telephone Encounter - Dorothy Gómez MD - 04/15/2022 9:25 AM EDT Due for med follow up - please schedule documented in this encounter Plan of Treatment Not on file documented as of this encounter Visit Diagnoses Not on filedocumented in this encounter Additional Health Concerns Assessment Noted Time PHQ-9 Depression Total Score: 1 09/02/20 21 5:16 PM EDT documented as of this encounter Care Teams Corporate Administrator Relationship Specialty Start Date End Date Violette Benjamin MD [address] [facility] [place] [address] PCP - General Family Medicine 08/05/18 Provider, Historical 12/12/20 Kolton Jarrell DO [address] [place], [place] [id number] Advanced Heart Failure/Transplant 12/23/20 Oralia Mei MD [address] [place] [address] Emergency Medicine 12/25/20 Chad Antonio MD [address] [facility] [place] [address] Family Medicine 07/02/22 documented as of this encounter
--- OUTSIDE RECORDS SUMMARY | 2025-04-27 14:08 | XMS_ITS | Encounter Summary ---
Author Organization [place] [address] Care Team Providers Care Occupational Health Nursing Director Name Role Phone Arboleda Tremainemarilee Ward DO Primary Care Provider [phone] Mulu Clements RN Unavailable UnavailHelga Hall RN Unavailable Kev Ann MD Primary Care Provider [phone] Elda Hurt MD Primary Care Provider [phone] Violette Benjamin MD Primary Care Provider [phone] Encounter Details Date Type Department Care Team (Late st Contact Info) Description 10/17/2009 Orders Only SEP [facility] [place] [address] [place] [address] Zach Rosario MD [address] [place], [place] [address] [phone] (Fax) Social History Tobacco Use Types Packs/Day Years Used Date Smoking Tobacco: Never Assessed Comments Unknown Sex and Gender Information Value Date Recorded Sex Assigned at Not on file Legal Sex Female 9:11 PM EDT Gender Identity Not on file Sexual Orientation Not on file documented as of this encounter Plan of Treatment Not on file documented as of this encounter Procedures Procedure Name Priority Date/Time Associated Diagnosis Comments ECHO - HISTORICAL Routine 10/17/2009 12: 00 AM EST documented in this encounter Results * ECHO - HISTORICAL (10/17/2009 12:00 AM EST) Anatomical Region Laterality Modality Other 10/17/2009 Narrative 11/03/2011 4:01 AM EST NOTICE: This report was electronically copied on 12/16/2011 from historical data generated by a practice prior to that practice using [facility] for Medical Records. Performing Provider: Zach Mendez M.D. Zach Rosario MD IMG ECHO ORDERABLES Final Result documented in this encounter Visit Diagnoses Not on filedocumented in this encounter Additional Health Concerns Infection Onset Date Last Indicated Resolved Time R/O COVID-19 01/02/2021 01/02/2021 01/02/2021 4:02 PM EST documented as of this encounter Care Teams Occupational Health Nursing Director Relationship Specialty Start Date End Date Tremaine Arboleda DO [address] [facility] [address] [place] [id number] PCP - General 09/20/09 02/16/11 Kev Sosa MD [address] [id number] PCP - General Internal Medicine 10/21/17 05/19/18 Elda Hurt MD [address] [place], [place] [id number] PCP - General Family Medicine 07/11/18 04/25/19 Violette Benjamin MD [address] [place] [address] PCP - General Family Medicine 04/26/19 Mulu Clements, apparatus engineering technologist Team Registered Nurse 02/18/15 Helga Armenta, REN Health Advocate Registered Nurse 02/20/1506/11 documented as of this encounter
--- OUTSIDE RECORDS SUMMARY | 2025-04-27 14:08 | XMS_ITS | Encounter Summary ---
Author Organization [facility] Address [address] [place] [address] Care Team Providers Care Order Desk Caller Name Role Phone Violette Benjamin MD Primary Care Provider + [phone] Provider, Historical Unavailable Unavailable Kolton Jarrell DO Unavailable [phone] Oralia Mei MD Unavailable [phone] Chad Antonio MD Unavailable [phone] Reason for Visit * Reason Comments Medications Refill Encounter Details Date Type Department Care Team (Late st Contact Info) Description 08/02/2024 Refill [facility] Physicians - Primary CareAlyssia [address] [place] [address] [place] [address] Violette Benjamin MD [address] [facility] [place] [address] Medications Refill Social History Tobacco Use Types Packs/Day Years Used Date Smoking Tobacco: Former Smokeless Tobacco: Never Alcohol Use Standard Drinks/Week Comments No 0 (1 standard drink = 0.6 oz pur e alcohol) PHQ-2 Answer Date Recorded PHQ-9 Auto Total 0 07/19/2023 Comments No Sex and Gender Information Value Date Recorded Sex Assigned at Not on file Legal Sex Female 4:49 PM EDT Gender Identity Not on file Sexual Orientation Not on file documented as of this encounter Miscellaneous Notes * Telephone Encounter - Nicole Spivey MA - 08/07/2024 11:08 AM EDT Spoke to pt.Recently out of hospital.Not walking very well nor is she driving. Said she does not know when she will be able to make it in to see us. * Telephone Encounter - Heather Vaughan - 08/07/2024 10:09 AM EDT Tried to call pt. No answer & vm not set up yet. No mychart. * Telephone Encounter - Violette Benjamin MD - 08/03/2024 9:01 PM EDT Declined medication refills until patient seen for appt/gets scheduled. * Telephone Encounter - Heather Vaughan - 08/03/2024 8:58 AM EDT No answer. Vm not set up yet. No mychart. * Telephone Encounter - Haven Gamez NCMA - 08/02/2024 3:25 PM EDT [facility] PRESCRIPTION REFILL REQUEST Medication(s) Dates Last Prescribed date: 2 months Visit Information LAST Office Visit: (in my Department) Jul 19 NEXT Office Visit: (in my Department) Visit date not found No future appointments. PRESCRIPTION REFILLS REQUESTED Pending Prescriptions Disp Refills oxyBUTYnin (DITROPAN) 5 mg tablet [Pharmacy Med Name: OXYBUTYNIN CHLORIDE 5 MG TA 5 Tablet] 270 Tablet 0 Sig: Take 1 Tablet by mouth 3 times daily. potassium chloride (KLOR-CON M10) 10 mEq tablet [Pharmacy Med Name: POTASS CHLOR REX ER 10MEQ 10 Tablet] 180 Tablet 0 Sig: Take 1 Tablet by mouth twice daily. traZODone (DESYREL) 100 mg tablet [Pharmacy Med Name: TRAZODONE HCL 100 MG TABS 100 Tablet] 270 Tablet 2 Sig: Take 3 Tablets by mouth nightly. buPROPion XL (WELLBUTRIN XL) 150 mg tablet [Pharmacy Med Name: BUPROPION HCL ER (XL) 150 M 150 Tablet] 180 Tablet 0 Sig: Take 2 Tablets by mouth in the morning. (Patient Preferred Pharmacy List): [facility] - [place], [place] [address] [address] [phone] [address] [id number] Hours: Not open 24 hours documented in this encounter Plan of Treatment Not on file documented as of this encounter Visit Diagnoses Not on filedocumented in this encounter Additional Health Concerns Assessment Noted Time PHQ-9 Depression Total Score: 1 07/19/20 23 12:17 PM EDT documented as of this encounter Care Teams Order Desk Caller Relationship Specialty Start Date End Date Violette Benjamin MD [address] [place] [address] PCP - General Family Medicine 08/05/18 Provider, Historical 12/12/20 Kolton Jarrell DO [address] [place] [address] Advanced Heart Failure/Transplant 12/23/20 Oralia Mei MD [address] [place] [address] Emergency Medicine 12/25/20 Chad Antonio MD [address] [place] [address] Family Medicine 07/02/22 documented as of this encounter
--- OUTSIDE RECORDS SUMMARY | 2025-04-27 14:08 | XMS_ITS | Encounter Summary ---
Author Organization [place] [address] Care Team Providers Care Marketing Area Manager Name Role Phone Arboleda, Tremainemarilee Ward DO Primary Care Provider [phone] Mulu Clements RN Unavailable UnavailHelga Hall RN Unavailable Kev Ann MD Primary Care Provider [phone] Elda Hurt MD Primary Care Provider [phone] Violette Benjamin MD Primary Care Provider [phone] Encounter Details Date Type Department Care Team (Late st Contact Info) Description 11/04/2010 Orders Only SEP H&V [facility] [address] [place] [address] Amilcar Ambrose MD [address] [place] [phone] Social History Tobacco Use Types Packs/Day Years Used Date Smoking Tobacco: Former Cigarettes 1 30 Alcohol Use Standard Drinks/Week Comments No 0 [...] Associated Diagnosis Comments ECHO - HISTORICAL Routine 11/04/2010 12: 00 AM EST documented in this encounter Results * ECHO - HISTORICAL (11/04/2010 12:00 AM EST) Anatomical Region Laterality Modality Other 11/04/2010 Narrative 11/09/2011 7:12 AM EST NOTICE: This report was electronically copied on 12/17/2011 from historical data generated by a practice prior to that practice using [facility] for Medical Records. Performing Provider: Amilcar Ambrose M.D., F.A.C.C. Amilcar Ambrose MD IMG ECHO ORDERABLES Final Re sult documented in this encounter Visit Diagnoses Not on filedocumented in this encounter Additional Health Concerns Infection Onset Date Last Indicated Resolved Time R/O COVID-19 01/02/2021 01/02/2021 01/02/2021 4:02 PM EST documented as of this encounter Care Teams Marketing Area Manager Relationship Specialty Start Date End Date Tremaine Arboleda DO [address] [facility] [address] [place] [phone] PCP - General 09/20/09 02/16/[address] [place] [address] [place] [phone] PCP - General Internal Medicine 10/21/17 05/19/18 Elda Hurt MD [address] [place] [address] PCP - General Family Medicine 07/11/18 04/25/19 Violette Benjamin MD [address] [place] [id number] PCP - General Family Medicine 04/26/19 Mulu Clements, toaster operator Team Registered Nurse 02/18/15 Helga Armenta, RN Health Advocate Registered Nurse 02/20/1506/11 documented as of this encounter
--- OUTSIDE RECORDS SUMMARY | 2025-04-27 14:08 | XMS_ITS | Encounter Summary ---
Author Organization [facility] Address [address] [place] [address] Care Team Providers Care Warehouse Worker Name Role Phone Violette Benjamin MD Primary Care Provider + [phone] Provider, Historical Unavailable Unavailable Kolton Jarrell DO Unavailable [phone] Oralia Mei MD Unavailable [phone] Chad Antonio MD Unavailable [phone] Reason for Visit * Reason Comments Medications Refill Encounter Details Date Type Department Care Team (Late st Contact Info) Description 09/01/2023 Refill [facility] Physicians - Heart & Vascular, [facility] [address] [place] [address] [place] [address] Kolton Jarrell DO [address] [facility] [place] [address] Medications Refill Social History Tobacco Use Types [...] documented as of this encounter Care Teams Warehouse Worker Relationship Specialty Start Date End Date Violette Benjamin MD [address] [place] [address] PCP - General Family Medicine 08/05/18 Provider, Historical 12/12/20 Kolton Jarrell DO [address] [place], [place] [address] Advanced Heart Failure/Transplant 12/23/20 Oralia Mei MD [address] [place], [place] [address] Emergency Medicine 12/25/20 Chad Antonio MD [address] [place] [address] Family Medicine 07/02/22 documented as of this encounter
--- OUTSIDE RECORDS SUMMARY | 2025-04-27 14:08 | XMS_ITS | Clinical Summary ---
Author Organization [facility] Address [address] [place] [address] Care Team Providers Care Newspaper Subscription Solicitor Name Role Phone Sawyer Betancourt MD Primary Care Provider [phone] Allergies No known active allergies Medications warfarin (Coumadin) 4 MG tablet Take 1 tablet (4 mg) by mouth 1 (one) time each day. Active sucralfate (Carafate) 1 g tablet Take 1 tablet (1 g) by mouth 4 (four) times a day. Active omeprazole (PriLOSEC) [address] capsule Take 1 capsule (40 mg) by mouth 1 (one) time each day. Do not crush or chew. Active traZODone (Desyrel) 100 MG tablet Take 3 tablets (300 mg) by mouth every night. Active potassium chloride CR (Klor-Con) 10 MEQ ER tablet Take 1 tablet (10 mEq) by mouth 2 (two) times a day. Do not crush, chew, or split. Active oxybutynin (Ditropan) 5 MG tablet Take 1 tablet (5 mg) by mouth 3 (three) times a day. Active furosemide (Lasix) 40 MG tablet Take 1 tablet (40 mg) by mouth 1 (one) time each day. Active atorvastatin (Lipitor) 10 MG tablet Take 1 tablet (10 mg) by mouth 1 (one) time each day. Active buPROPion XL (Wellbutrin XL) 150 MG 24 hr tablet Take 2 tablets (300 mg) by mouth 1 (one) time each day. Do not crush, chew, or split. Active losartan (Cozaar) 25 MG tablet Take 1 tablet (25 mg) by mouth 1 (one) time each day. Active cetirizine (ZyrTEC) 10 MG tablet Take 1 tablet (10 mg) by mouth every night for 14 days. 14 tablet 4 Active methocarbamol (Robaxin) 500 MG tablet Take 2 tablets (1,000 mg) by mouth every 8 (eight) hours for 14 days. 84 tablet 4 Active naloxone (Narcan) 4 mg/0.1 mL nasal spray 1. Give 1 spray in nostril for no/slow breathing or cannot wake after opioid use 2. Call 911 3. Repeat in other nostril if symptoms continue 1 each 4 Active Active Problems Problem Noted Date Diagnosed Date Cellulitis 07/26/2024 Overview (07/26/2024): Noted on exam 07/25 Unable to express pus from Doxy 100 mg twice daily X 5 days Follow-up with PCP as soon as possible for further recommendation Age-related physical debility 07/24/2024 Overview (07/24/2024): Complicates care and rehabilitation Elevated AST (SGOT) 07/18/2024 Overview (07/18/2024): Incidental finding Follow up with PCP for ongoing care intermediate (current) use of anticoagulants 2023 Overview (07/23/2024): Daily Warfarin -INR monitoring and dosing per pharmacy Lovenox bridging started INR goal 2.5-3.5 (HFpEF) heart failure with preserved ejection fr action 07/18/2024 Overview (07/18/2024): Resume home meds Last Echo: normal 05/04/24 A-fib 07/18/2024 Overview (07/19/2024): Hx of Anemia 07/18/2024 Overview (07/18/2024): Monitor/trend H&H stable; no transfusion at this time Right hip pain 07/18/2024 Overview (07/18/2024): NO acute fractures observed on imaging Repeat imaging as necessary if persistent Fall 07/17/2024 Overview (07/21/2024): Inciting traumatic event SGT 2 Admit Tertiary on 07/18 Lumbar transverse process fracture 07/17/2024 Overview (07/17/2024): T12 - L3 spinous process fractures Multimodal pain control, no surgical intervention Hx of heart valve replacement with mechanical va lve 07/17/2024 Overview (07/25/2024): Home warfarin. INR goal 2.5-3.5 Aortic and mitral Resolved Problems Problem Noted Date Diagnosed Date Resolved Date Slow transit constipation 07/20/2024 Overview (07/23/2024): Patient unclear of when last bowel movement was but reportedly greater than 1 week ago. Distention present, nausea Bowel regimen CTM Hypokalemia 07/18/2024 07/21/2024 Overview (07/18/2024): Replete as needed Social History Tobacco Use Types Packs/Day Years Used Date Smoking Tobacco: Never Assessed Humiliation, Afraid, Rape, and Kick questionnair e Answer Date Recorded Within the last year, have y ou been afraid of your partner or ex-partner? No 07/19/2024 Within the last year, have y ou been humiliated or emotionally abused in other ways by your partner or ex-partner? No Within the last year, have y ou been kicked, hit, slapped, or otherwise physically hurt by your partner or ex-partner? No 07/19/2024 Within the last year, have y ou been raped or forced to have any kind of sexual activity by your partner or ex-partner? No 07/19/2024 Hunger Vital Sign Answer Date Recorded Within the past 12 months, y ou worried that your food would run out before you got the money to buy more. Sometimes true Within the past 12 months, t he food you bought just didn't last and you didn't have money to get more. Sometimes true PRAPARE - Transportation Answer Date Re corded In the past 12 months, has l ack of transportation kept you from medical appointments or from getting medications? No 07/02 In the past 12 months, has l ack of transportation kept you from meetings, work, or from getting things needed for daily living? No 07/19/2024 Housing Stability Vital Sign Answer Wood e Recorded In the last 12 months, was t here a time when you were not able to pay the mortgage or rent on time? No 07/19/2024 In the last 12 months, how many places have you lived? 1 07/19/2024 In the last 12 months, was t here a time when you did not have a steady place to sleep or slept in a intermediate (including now)? No 07/19/2024 Utilities Answer Date Recorded In the past 12 months has th e electric, gas, oil, or water company threatened to shut off services in your home? No 07/19/2024 Comments Unknown Sex and Gender Information Value Date Recorded Sex Assigned at Not on file Legal Sex Female 5:13 PM EDT Gender Identity Not on file Sexual Orientation Not on file Last Filed Vital Signs Vital Sign Reading Time Taken Comments Blood Pressure 120/67 07/26/2024 12:01 PM EDT Pulse 72 07/26/2024 12:01 PM EDT Temperature 36.8 C (98.2 F) 07/26/2024 12:01 PM EDT Respiratory Rate 16 07/26/2024 12:0 1 PM EDT Oxygen Saturation 94% 07/26/2024 7:11 AM EDT Inhaled Oxygen Concentration - - Weight 65.7 kg (144 lb 13.5 oz) 07/17/2024 7:31 PM EDT Height - - Body Mass Index - - Plan of Treatment Health Maintenance Due Date Last Done Comments [facility]-Bone Density Scan 1945 [facility]-Depression Screening 1945 [facility]-Hepatitis C Screening 1945 [facility]-/Child/Adol SDOH Screenings 1945 [facility]-DTaP,Tdap,and Td Vaccines (1 - Tdap) 1966 [facility]-Zoster Vaccines (2 of 3) 07/16/2015 05/21/2015 [facility]-Pneumococcal Vaccine: 50+ Years (3 of 3 - PCV20 or PCV21) 04/26/2022 04/26/2017, 05/16/2015, 07/17/2011 [facility]-RSV Vaccine: 60+ Years or (1 - 1-dose 75+ series) 2022 [id number] Vaccine ( season) 2024 10/21/2021, 02/10/2021, 01/13/2021 [facility]-Medicare Annual Wellness (AWV) 07/19/2024 07/19/2023, 08/26/2017, 06/18/2016, Additional history exists [facility]- SDOH Screenings 01/16/2025 [facility]-Adult SDOH Screenings 01/16/2025 07/19/2024 [facility]-Influenza Vaccine (Season Ended) 2025 08/17/2022, 07/04/2020, 07/12/2018, Additional history exists HPV Vaccines Aged Out No longer eligi ble based on patient's age to complete this topic [facility]-HIB Vaccines Aged Out No longer e ligible based on patient's age to complete this topic [facility]-Hepatitis A Vaccines Aged Out No longer eligible based on patient's age to complete this topic [facility]-IPV Vaccines Aged Out No longer e ligible based on patient's age to complete this topic [facility]-Rotavirus Vaccines Aged Out No lo nger eligible based on patient's age to complete this topic Insurance [facility] MEDIC[facility] Advance Directives * Full Code (Latest Code Status on File) Date Activated Date Inactivated Comments 07/17/2024 10:22 PM 07/26/2024 4:37 PM Question Answer Comments Patient has decision-making capacity? Yes Care Teams Newspaper Subscription Solicitor Relationship Specialty Start Date End Date Sawyer Betancourt MD [address] [place] [address] PCP - General 07/17/24
--- OUTSIDE RECORDS SUMMARY | 2025-04-27 14:08 | XMS_ITS | Clinical Summary ---
Author Organization [facility] Address [facility] [place] [address] Care Team Providers Care Pipe Production Worker Name Role Phone Violette Benjamin MD Primary Care Provider [phone] Provider, Historical Unavailable Unavailable Kolton Jarrell DO Unavailable [phone] Oralia Mei MD Unavailable [phone] Chad Antonio MD Unavailable [phone] Allergies Active Allergy Reactions Criticality Noted Date Comments Alendronate Other (See Comments) 06/13/2010 Makes sick to stomach and achey Alendronate Sodium Diarrhea 07/02/2022 Dye Hives,Other (See Comments) 03/20/2016 Had hives after reaction to some unknown dye-after drinking a liquid for a test had reaction Fluticasone Propion-Salmeterol Nausea Only 11/11/2010 Olanzapine Other (See Comments) 11/11/2010 Sick all over-like the flu Medications Albuterol-Ipratro pium (DUONEB) 0.5 mg-3 mg(2.5 mg base)/3 mL nebulizer solution Take 3 mL by inhalation as needed. 8 Active fluticasone (FLONASE) 50 mcg/actuation nasal spray Gustavus 1 Gustavus into nose. 7 Active calcium citrate/vitamin D3 (CALCIUM CITRATE + D PO) Take by mouth. Active cetirizine (ZYRTEC) 10 mg Tablet Take 10 mg by mouth daily. Active doxepin (SILENOR) 6 mg POIndications:Psy chophysiological insomnia Take 6 mg by mouth nightly at bedtime. [id number] Exp 03/2019 2 Packets # 8 tablets total 8 Tab 3 8 Active budesonide-formot niurka (SYMBICORT) 160-4.5 mcg/actuation HFA Aerosol InhalerIndication s:Moderate persistent reactive airway disease without complication Take 2 Puffs by inhalation 2 times daily. 1 Inhaler 11 8 Active erythromycin (ROMYCIN) 5 mg/gram (0.5 %) ointmentIndicatio ns:Corneal irritation of both eyes APPLY A 1 INCH RIBBON TO EYELASH LINE DAILY IN THE EVENING 3.5 g 6 0 Active latanoprost (XALATAN) 0.005 % Drops INSTILL 1 DROP BY OPHTHALMIC ROUTE EVERY EVENING INTO BOTH EYES 2 Active Spiriva with HandiHaler 18 mcg Capsule, w/Inhalation DeviceIndications :Moderate persistent reactive airway disease without complication INHALE CONTENTS OF ONE CAPSULE BY MOUTH ONCE DAILY 30 Capsule 11 2 Active calcitonin, salmon, (FORTICAL) 200 unit/actuation Gustavus, Non-Aerosol INSTILL 1 SPRAY INTO ONE NOSTRIL ONCE DAILY 3.7 mL 2 2 Active Melatonin 5 mg Tablet Take 1 Tablet (5 mg) by mouth nightly at bedtime. 3 Active warfarin (COUMADIN) 4 mg tablet Take 1 Tablet (4 mg) by mouth daily. 90 Tablet 3 Active mirtazapine (REMERON) 7.5 mg tabletIndications :Primary insomnia Take 1 Tablet (7.5 mg) by mouth every evening. 30 Tablet 3 3 Active sucralfate (CARAFATE) 1 gram tablet Take 1 Tablet by mouth 4 times daily. 360 Tablet 1 3 Active omeprazole (PriLOSEC) 40 mg Capsule, Delayed Release(E.C.)[place] cations:History of GI bleed Take 1 Capsule by mouth once daily. 90 Capsule 3 4 Active traZODone (DESYREL) 100 mg tablet Take 3 Tablets by mouth nightly. 270 Tablet 2 4 Active losartan (COZAAR) 25 mg Tablet Take 1 Tablet by mouth nightly. 90 Tablet 1 4 Active potassium chloride (KLOR-CON M10) 10 mEq tablet Take 1 Tablet by mouth twice daily. 180 Tablet 4 Active oxyBUTYnin (DITROPAN) 5 mg tablet Take 1 Tablet by mouth 3 times daily. 270 Tablet 4 Active furosemide (LASIX) 40 mg tablet Take 1 Tablet by mouth once daily. 60 Tablet 2 4 Active atorvastatin (LIPITOR) 10 mg Tablet TAKE 1 TABLET BY MOUTH DAILY 90 Tablet 1 4 Active buPROPion XL (WELLBUTRIN XL) 150 mg tablet Take 2 Tablets by mouth in the morning. 180 Tablet 4 Active Active Problems Problem Noted Date Diagnosed Date Chronic obstructive pulmonar y disease, unspecified COPD type ([facility]) 07/19/2023 Current use of residential anticoagulation 019 Assessment & Plan (03/21/2019 11:56 AM EDT): We can follow her INR here S/P AVR (aortic valve replacement) 02/13/2019 Assessment & Plan (02/17/2021 3:43 PM EDT): -Mechanical aortic valve placement 2009. I previously reviewed OSH echo images from September,. V max was 3.1m/s (normal < 3), DVI is 0.5 ( normal > 0.3), acceleration time is around 75ms (normal <100ms). These values are suggestive of high flow in setting of preserved EF vs patient prosthesis mismatch. ECHO here at [facility] in November 2019 shows similar Vmax and acceleration time. -She has no signs or symptoms of congestive heart failure. She is doing very well -->continue monitoring of this valve based on symptoms Assessment & Plan (11/14/2019 5:12 PM EST): -Mechanical aortic valve placement 2009. I previously reviewed OSH echo images from September,. V max was 3.1m/s (normal < 3), DVI is 0.5 ( normal > 0.3), acceleration time is around 75ms (normal <100ms). These values are suggestive of high flow in setting of preserved EF vs patient prosthesis mismatch. ECHO here at [facility] in November 2019 shows similar Vmax and acceleration time. -She has no signs or symptoms of congestive heart failure. -->continue monitoring of this valve based on symptoms and with serial echoes Assessment & Plan (03/21/2019 11:56 AM EDT): Mechanical aortic valve placement 2009. I reviewed OSH echo images from September,. V max was 3.1m/s (normal < 3), DVI is 0.5 ( normal > 0.3), acceleration time is around 75ms (normal <100ms). These values are suggestive of high flow in setting of preserved EF vs patient prosthesis mismatch. Mean gradient is only 21mmHg. No contrast used in this ECHO but EF appears hyperdynamic > 70%. She has no signs or symptoms of congestive heart failure as a consequence of her multi-valvular disease at this time. -->recheck echo on next appointment to assess for progression of AV gradients H/O mitral valve replacement 02/13/2019 Assessment & Plan (02/17/2021 3:44 PM EDT): I previously reviewed the ECHO images from [facility] from 2017. 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 Imaging from [facility] in November 2019 is similar to the above. -->repeat ECHO as needed based on symptoms Assessment & Plan (11/14/2019 5:10 PM EST): I previously reviewed the ECHO images from [facility] from 2017. 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 Imaging from [facility] in November 2019 is similar to the above. -->continue monitoring by echoes as needed for worsening symptoms. Assessment & Plan (03/21/2019 9:40 AM EDT): I reviewed the ECHO images from [facility] from 2017. 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 Moderate persistent reactive airway disease without complication 08/23/2018 History of GI bleed 08/23/2018 Mood disorder ([facility]) 06/16/2018 Chronic pain syndrome 06/16/2018 Fibromyalgia affecting multiple sites 06/06/2018 Age-related physical debility 06/06/2018 Chronic anticoagulation 06/06/2018 Resolved Problems Problem Noted Date Diagnosed Date Resolved Date H/O prosthetic heart valve 06/06/2018 0 12/16/2022 Immunizations Immunization Administration Dates Next Due Influenza 07/04/2020,07/12/2018 Influenza (whole) 08/01/2017, 6,07/22/2015,08/23,07/17/2011 Influenza, High Dose Seasona l, Preservative Free (Fluzone HD 65yrs and over) 08/17/2022 PPD Test 11/12/2017 Pneumococcal 20-valent Conju gate Vaccine (PREVNAR) 08/17/2022 Pneumococcal Conjugate 13 va lent (PREVNAR) 04/26/2017,05/16/2015 Pneumococcal Polysaccharide 23 Valent (PNEUMOVAX) 07/17/2011 SARS-Cov-2 Vaccine Red Top 1 2+yrs Old (MODERNA) 10/21/2021,02/10/2021,01/13/2021 Zoster-LZV(Zostavax) 05/21/2015 Family History Medical History Relation Name Comments Heart Problems Maternal Grandmother Relation Name Status Comments Maternal Grandmother Social History Tobacco Use Types Packs/Day Years Used Date Smoking Tobacco: Former Smokeless Tobacco: Never Tobacco Cessation:Counseling Given: Not Answered Alcohol Use [...] Sign Reading Time Taken Comments Blood Pressure 118/60 07/19/2023 12:10 PM EDT Pulse 68 07/19/2023 12:10 PM EDT Temperature 36.8 C (98.2 F) 07/19/2023 12:10 PM EDT Respiratory Rate - - Oxygen Saturation 93% 07/19/2023 12:10 PM EDT Inhaled Oxygen Concentration - - Weight 67.1 kg (148 lb) 07/19/2023 12:10 PM EDT Height 160 cm (5' 3 ) 07/19/2023 12:10 PM EDT Body Mass Index 26.22 07/19/2023 12:10 PM EDT Plan of Treatment Health Maintenance Due Date Last Done Comments Tetanus Vaccination (Every 1 0 Years) 1965 Osteoporosis Screening 2012 Zoster-RZV(Shingrix) (1 of 2) 07/16/2015 RSV Vaccines (1 - 1-dose 75+ series) 2022 Fall Risk Assessment 07/19/2024 07/19/2023 Lipid Monitoring 07/19/2024 07/19/2023 Advance Care Planning 11/01/2024 07/19/2023, 022 Depression Screening 11/01/2024 07/19/2023, 07/02/2022, 09/02/2021, Additional history exists Influenza Vaccination (Seaso n Ended) 2025 08/17/2022, 07/04/2020, 07/12/2018, Additional history exists Colonoscopy Discontinued 02/11/2015 Colorectal Cancer Screening Discontinued Breast Cancer Screening Discontinued 07/02/2016 COVID-19 Vaccine Discontinued 10/21/2021, 10/2021, 01/13/2021 Influenza Vaccination (Yearly) Discontinued 1 , 07/04/2020, 07/12/2018, Additional history exists Pneumococcal Vaccine: 50+ Years Completed 08/17/2022, 04/26/2017, 05/16/2015, Additional history exists Advance Care Planning Discontinued 07/19/2023, 022 Hepatitis C Virus (HCV) Screening Completed 023 Lipid Screening Discontinued 07/19/2023 Cologuard Discontinued FIT Discontinued Procedures Procedure Name Priority Date/Time Associated Diagnosis Comments LIPID PROFILE Routine 07/19/2023 1:08 PM EDT S/P AVR (aortic valve replacement) H/O mitral valve replacement Abnormal finding of blood chemistry, unspecified HEPATITIS C AB WITH REFLEX TO HCV,RNA,QUANT PCR Routine 07/19/2023 1:08 PM EDT Need for hepatitis C screening test EXTERNAL MAMMOGRAM - SEE COMMENT Routine 07/02/2016 EXTERNAL COLONOSCOPY - SEE COMMENT Routine 02/11/2015 from Last 3 Months or Most Recently Relevant to Health Maintenance Results * HEPATITIS C AB WITH REFLEX TO HCV,RNA,QUANT PCR (07/19/2023 1:08 PM EDT) HCV Qual Interp Nonreactive Nonreactive [facility] EXTERNAL LAB Comment:IgG and IgM anti-HCV not detected. Signal/Cutoff 0.59 0.00 - 0.79 S/CO [facility] EXTERNAL [facility] Serum 07/19/2023 1:08 PM EDT 07/19/2023 6:59 PM EDT Violette Benjamin MD HEMATOLOGY ORDERABLES Terrie l Result [facility] EXTERNAL [facility] [address] * LIPID PROFILE (07/19/2023 1:08 PM EDT) Cholesterol 162 125 - 199 mg/dL [facility] EXTERNAL LAB Comment: TOTAL CHOLESTEROL INTERPRETATION: Less than 200 mg/dL Desireable 200-239 mg/dL Borderline Greater or Equal to 240 mg/dL High LDL Calculated 68 0 - 100 mg/dL [facility] EXTERNAL LAB Comment: LDL CHOLESTEROL INTERPRETATION: Less than 100 mg/dL Optimal 100-129 mg/dL Near optimal/above optimal 130-159 mg/dL Borderline High 160-189 mg/dL High Greater or Equal to 190 mg/dL Very High HDL 75 40 - 180 mg/dL [facility] EXTERNAL LAB Comment: HDL CHOLESTEROL INTERPRETATION: Less than 40 mg/dL Low Greater than 60 mg/dL Desirable Triglycerides 93 0 - 149 mg/dL [facility] EXTERNAL LAB Comment: TOTAL TRIGLYCERIDE INTERPRETATION: Less than 150 mg/dL Normal 150-199 mg/dL Borderline HIgh 200-499 mg/dL High Greater or Equal to 500 mg/dL Very High NONHDL Calculated 87 0 - 129 mg/dL [facility] EXTERNAL LAB Comment: NON-HDL INTERPRETATION: Less than 130 mg/dL Desirable 130-159 mg/dL Above Desirable 160-189 mg/dL Borderline High 190-219 mg/dL High Greater than or equal to 220 mg/dL Very High Serum (Serum) 07/19/2023 1:0 8 PM EDT 07/19/2023 6:57 PM EDT Result [facility] Violette Benjamin MD CHEMISTRY ORDERABLES Final Result Performing Organization Address [facility] de Phone Number [facility] EXTERNAL [facility] [address] * EXTERNAL MAMMOGRAM - SEE COMMENT (07/02/2016) Impressions [facility] - 07/02/2016 Negative ([id number]) ~ RECOMMENDATION: Routine screening mammogram in 1 year. ~ * The patient with a palpable abnormality, unexplained by breast imaging, should be managed on clinical basis by the attending physician. * Breast imaging has a false negative rate of 15%. * The patient was notified by mail of the results of this examination. *The patient's information was entered into a reminder system with a target due date for the next mammogram. The mammogram was reviewed by a Radiologist and CAD. Result Narrative Procedure:MM MOBILE MAMMO DIGITAL SCREEN W CAD YASMINE ~ Reason for exam: screening (asymptomatic). ~ MM MOBILE MAMMO DIGITAL SCREEN W CAD YASMINE Bilateral CC and MLO view(s) were taken. The breast tissue is almost entirely fat. Compared to prior studies the most recent being 10-28-12. Result [facility] Historical Provider [place] [facility] Final Result Performing Organization Address [facility] de Phone Number [facility] [address] [place] [address] * EXTERNAL COLONOSCOPY - SEE COMMENT (02/11/2015) 02/11/2015 Impressions Violette Benjamin MD - 02/11/2015 GIB (gastrointestinal bleeding) Abd CT (02/08/15) 1. Findings concerning for active hemorrhage within the distal sigmoid colon and rectum. This corresponds to the patient's elevated INR and rectal bleeding. 2. Incidental findings as described. Serial H&H. GI/Surgery consulted. EGD/ Colonoscopy: Carafate 1 gram Take 1 gram by mouth before meals and at bedtime Historical Provider [place] [facility] Final Result from Last 3 Months or Most Recently Relevant to Health Maintenance Insurance [facility] MED[facility] Care Teams Pipe Production Worker Relationship Specialty Start Date End Date Violette Benjamin MD [address] [place] [address] [place] [address] PCP - General Family Medicine 08/05/18 Provider, Historical 12/12/20 Kolton Jarrell DO [address] [place] [address] Advanced Heart Failure/Transplant 12/23/20 Oralia Mei MD [address] [place] [address] Emergency Medicine 12/25/20 Chad Antonio MD [address] [facility] [place] [address] [facility] 07/02/22
--- OUTSIDE RECORDS SUMMARY | 2025-04-27 14:08 | XMS_ITS | Encounter Summary ---
Author Organization [facility] Address [address] [place] [address] Care Team Providers Care Motor Coach Tour Operator Name Role Phone Violette Benjamin MD Primary Care Provider + [phone] Provider, Historical Unavailable Unavailable Kolton Jarrell DO Unavailable [phone] Oralia Mei MD Unavailable [phone] Chad Antonio MD Unavailable [phone] Reason for Visit * Reason Comments Medications Refill Encounter Details Date Type Department Care Team (Late st Contact Info) Description 06/01/2023 Refill [facility] Physicians - Primary CareAlyssia [address] [place] [address] [place] [address] Dorothy Gómez MD [address] [facility] [place] [address] Medications Refill Social History Tobacco Use Types Packs/Day Years Used Date Smoking Tobacco: Former Smokeless Tobacco: Never Alcohol Use Standard Drinks/Week Comments No 0 (1 standard drink = 0.6 oz pur e alcohol) PHQ-2 Answer Date Recorded PHQ-9 Auto Total 15 07/02/2022 Comments No Sex and Gender Information Value Date Recorded Sex Assigned at Not on file Legal Sex Female 4:49 PM EDT Gender Identity Not on file Sexual Orientation Not on file documented as of this encounter Miscellaneous Notes * Telephone Encounter - Violette Benjamin MD - 06/02/2023 12:45 PM EDT Patient hasn't been seen since 08/2002. This is a high risk medication that requires monitoring andcardiology is managing her coumadin. documented in this encounter Plan of Treatment Not on file documented as of this encounter Visit Diagnoses Not on filedocumented in this encounter Additional Health Concerns Assessment Noted Time PHQ-9 Depression Total Score: 1 07/02/20 22 1:41 PM EDT documented as of this encounter Care Teams Motor Coach Tour Operator Relationship Specialty Start Date End Date Violette Benjamin MD [address] [place] [address] [place] [address] PCP - General Family Medicine 08/05/18 Provider, Historical 12/12/20 Kolton Jarrell DO [address] [place] [address] Advanced Heart Failure/Transplant 12/23/20 Oralia Mei MD [address] [place] [address] Emergency Medicine 12/25/20 Chad Antonio MD [address] [place] [address] Family Medicine 07/02/22 documented as of this encounter
--- OUTSIDE RECORDS SUMMARY | 2025-04-27 14:08 | XMS_ITS | Encounter Summary ---
Author Organization [facility] Address [address] [place] [address] Care Team Providers Care Logistics Loss Prevention Manager Name Role Phone Violette Benjamin MD Primary Care Provider + [phone] Provider, Historical Unavailable Unavailable Kolton Jarrell DO Unavailable [phone] Oralia Mei MD Unavailable [phone] Chad Antonio MD Unavailable [phone] Encounter Details Date Type Department Care Team (Late st Contact Info) Description 03/21/2019 Abstract [facility] Physicians - Heart & Vascular, [facility] [address] [facility] [place] [address] Génesis Vergara, RN [address] [place], [place] [address] Social History Tobacco Use Types Packs/Day Years Used Date Smoking Tobacco: Former Smokeless Tobacco: Never Alcohol Use Standard Drinks/Week Comments No 0 (1 standard drink = 0.6 oz pur e alcohol) PHQ-2 Answer Date Recorded PHQ-2 Score 0 02/08/2019 Comments No Sex and Gender Information Value [...] Noted Time PHQ-9 Depression Total Score: 1 05/09/20 18 1:55 PM EDT documented as of this encounter Care Teams Logistics Loss Prevention Manager Relationship Specialty Start Date End Date Violette Benjamin MD [address] [facility] [place] [address] PCP - General Family Medicine 08/05/18 Provider, Historical 12/12/20 Kolton Jarrell DO [address] [place] [address] Advanced Heart Failure/Transplant 12/23/20 Oralia Mei MD [address] [place] [address] Emergency Medicine 12/25/20 Chad Antonio MD [address] [place] [address] Family Medicine 07/02/22 documented as of this encounter
--- OUTSIDE RECORDS SUMMARY | 2025-04-27 14:08 | XMS_ITS | Encounter Summary ---
Author Organization [facility] Address [address] [place] [address] Care Team Providers Care Tap Grinder Name Role Phone Violette Benjamin MD Primary Care Provider + [phone] Provider, Historical Unavailable Unavailable Kolton Jarrell DO Unavailable [phone] Oralia Mei MD Unavailable [phone] Chad Antonio MD Unavailable [phone] Encounter Details Date Type Department Care Team (Late st Contact Info) Description 04/27/2019 Lab Results [facility] Physicians - Heart & Vascular, [address] [place] [address] [facility] [place] [address] Kolton Jarrell DO [address] [facility] [place] [address] Social History Tobacco Use Types Packs/Day Years [...] documented as of this encounter Care Teams Tap Grinder Relationship Specialty Start Date End Date Violette Benjamin MD [address] [place] [address] PCP - General Family Medicine 08/05/18 Provider, Historical 12/12/20 Kolton Jarrell DO [address] [place] [address] Advanced Heart Failure/Transplant 12/23/20 Oralia Mei MD [address] [place] [address] Emergency Medicine 12/25/20 Chad Antonio MD [address] [place] [id number] Family Medicine 07/02/22 documented as of this encounter
--- OUTSIDE RECORDS SUMMARY | 2025-04-27 14:08 | XMS_ITS | Encounter Summary ---
Author Organization [facility] Address [address] [place] [address] Care Team Providers Care Single Pass Soil Stabilizer Operator Name Role Phone Violette Benjamin MD Primary Care Provider + [phone] Provider, Historical Unavailable Unavailable Kolton Jarrell DO Unavailable [phone] Oralia Mei MD Unavailable [phone] Chad Antonio MD Unavailable [phone] Reason for Visit * Reason Comments Medications Refill Encounter Details Date Type Department Care Team (Late st Contact Info) Description 04/21/2023 Refill [facility] Physicians - Primary CareAlyssia [address] [place] [address] [place] [address] Dorothy Gómez MD [address] [facility] [place] [address] Medications Refill Social History Tobacco Use Types [...] Telephone Encounter - Violette Benjamin MD - 04/21/2023 6:50 PM EDT This medication is managed by cardiology/anticoag. documented in this encounter Plan of Treatment Not on file documented as of this encounter Visit Diagnoses Not on filedocumented in this encounter Additional Health Concerns Assessment Noted Time PHQ-9 Depression Total Score: 1 07/02/20 22 1:41 PM EDT documented as of this encounter Care Teams Single Pass Soil Stabilizer Operator Relationship Specialty Start Date End Date Violette Benjamin MD [address] [place] [address] PCP - General Family Medicine 08/05/18 Provider, Historical 12/12/20 Kolton Jarrell DO [address] [place] [address] Advanced Heart Failure/Transplant 12/23/20 Oralia Mei MD [address] [place], [place] [address] Emergency Medicine 12/25/20 Chad Antonio MD [address] [place] [address] Family Medicine 07/02/22 documented as of this encounter
--- OUTSIDE RECORDS SUMMARY | 2025-04-27 14:08 | XMS_ITS | Encounter Summary ---
Author Organization [facility] Address [address] [place] [address] Care Team Providers Care Stain Wiper Name Role Phone Violette Benjamin MD Primary Care Provider + [phone] Provider, Historical Unavailable Unavailable Kolton Jarrell DO Unavailable [phone] Oralia Mei MD Unavailable [phone] Chad Antonio MD Unavailable [phone] Reason for Visit * Reason Comments Medications Refill Encounter Details Date Type Department Care Team (Late st Contact Info) Description 06/02/2023 Refill [facility] Physicians - Primary CareAlyssia [address] [place] [address] [place] [address] Violette Benjamin MD [address] [facility] [place] [address] Medications Refill Social History Tobacco Use Types [...] Encounter - Violette Benjamin MD - 06/02/2023 1:18 PM EDT Refused rx. This is managed by cardiology. documented in this encounter Plan of Treatment Not on file documented as of this encounter Visit Diagnoses Not on filedocumented in this encounter Additional Health Concerns Assessment Noted Time PHQ-9 Depression Total Score: 1 07/02/20 22 1:41 PM EDT documented as of this encounter Care Teams Stain Wiper Relationship Specialty Start Date End Date Violette Benjamin MD [address] [place], [place] [id number] PCP - General Family Medicine 08/05/18 Provider, Historical 12/12/20 Kolton Jarrell DO [address] [place] [address] Advanced Heart Failure/Transplant 12/23/20 Oralia Mei MD [address] [place], [place] [address] Emergency Medicine 12/25/20 Chad Antonio MD [address] [place] [address] Family Medicine 07/02/22 documented as of this encounter
--- OUTSIDE RECORDS SUMMARY | 2025-04-27 15:07 | XMS_ITS | CCD ---
Author Organization Unknown Care Team Providers Care Legger Press Operator Name Role Phone Unavailable Primary Care Provider Unavailabl e Unavailable Chronic Care Management Unavaila ble Summary Purpose DataExchange Insurance Providers Payer name Policy type / Coverage type Covered republican ID Effective Begin Date Effective End Date MEDICARE [place] [id number] Unknown Unknown Family History Family History data not found Medication Administered No Medication Administered data Reason For Visit No Reason For Visit data Medical Equipment No Medical Equipment data Advance Directives No Advance Directive data
[2025-04-27 15:25] LABS: PHA INR Fingerstick 2.1 (0.9-1.1)
== END 2025-04-27 15:27 ==
LOC: ACC 14:04
PROVIDERS: PCP Family Medicine; Visit Provider Family Medicine
DX: Z95.2 Presence of prosthetic heart valve (principal)
CPT/HCPCS: 85610; 99211; G0463

== ENCOUNTER 2025-05-21 12:54 | Outpatient (CLI) | payer MEDICARE, SELFPAY ==
--- OUTSIDE RECORDS SUMMARY | 2025-05-21 12:57 | XMS_ITS | Encounter Summary ---
Author Organization [place] [address] Care Team Providers Care Continuous Dryout Operator Helper Name Role Phone Mulu Clements RN Unavailable UnavailHelga Hall RN Unavailable Kev Ann MD Primary Care Provider [phone] Elda Hurt MD Primary Care Provider [phone] Violette Benjamin MD Primary Care Provider [phone] Reason for Referral * MRI/CAT Scan (Routine) - Closed Specialty Diagnoses / Procedures Referred By Contac t Referred To Contact Radiology Diagnoses Pathologic fracture of vertebrae, with delayed healing, subsequent encounter Procedures MRI THORACIC SPINE WO CONTRAST Mehrdad Webster MD Phone: tel: fax: Referral ID Status Reason Start Date Expiration Date Visits Re quested Visits Authorized [id number] Closed 11/07/2014 11/07/2015 1 1 Encounter Details Date Type Department Care Team (Latest Contact Info) Description 11/07/2014 Pre-Imaging Procedure Adult Med [address] [place], [place] [id number] Sarahy Boss, REN Pathologic fracture of vertebrae, [...] documented as of this encounter Care Teams Continuous Dryout Operator Helper Relationship Specialty Start Date End Date Kev S[place] [address] [address] PCP - General Internal Medicine 10/21/17 05/19/18 Elda Hurt MD [address] [place] [address] PCP - General Family Medicine 07/11/18 04/25/19 Violette Benjamin MD [address] [place] [address] PCP - General Family Medicine 04/26/19 Mulu Clements, halver machine operator Team Registered Nurse 02/18/15 Helga Armenta, REN Health Advocate Registered Nurse 02/20/1506/11 documented as of this encounter
--- OUTSIDE RECORDS SUMMARY | 2025-05-21 12:57 | XMS_ITS | Encounter Summary ---
Author Organization [facility] Address [address] [place] [address] Care Team Providers Care Easement Man Name Role Phone Violette Benjamin MD Primary Care Provider + [phone] Provider, Historical Unavailable Unavailable Kolton Jarrell DO Unavailable [phone] Oralia Mei MD Unavailable [phone] Chad Antonio MD Unavailable [phone] Reason for Visit * Reason Comments Medications Refill Encounter Details Date Type Department Care Team (Late st Contact Info) Description 04/15/2022 Refill [facility] Physicians - Primary Care, Alyssia Cardona [address] [place] [address] [place] [address] Violette Benjamin MD [address] [place] [address] Medications Refill Social History Tobacco Use Types [...] documented as of this encounter Care Teams Easement Man Relationship Specialty Start Date End Date Violette Benjamin MD [address] [facility], [place] [id number] PCP - General Family Medicine 08/05/18 Provider, Historical 12/12/20 Kolton Jarrell DO [address] [facility] [place] [address] Advanced Heart Failure/Transplant 12/23/20 Oralia Mei MD [address] [place] [address] Emergency Medicine 12/25/20 Chad Antonio MD [address] [facility] [place] [address] Family Medicine 07/02/22 documented as of this encounter
--- OUTSIDE RECORDS SUMMARY | 2025-05-21 12:57 | XMS_ITS | Clinical Summary ---
Author Organization [facility] Address [address] [place] [address] Care Team Providers Care Brick Mason Name Role Phone Sawyer Betancourt MD Primary Care Provider [phone] Allergies No known active allergies Medications warfarin [...] Follow up with PCP for ongoing care prison (current) use of anticoagulants 2023 Overview (07/23/2024): [...] place to sleep or slept in a custodial (including now)? No 07/19/2024 Utilities Answer Date [...] or (1 - 1-dose 75+ series) 2022 [id number] Vaccine ( - season) 2024 10/21/2021, 02/10/2021, 01/13/2021 [facility]-Medicare Annual Wellness (AWV) 07/19/2024 07/19/2023, 08/26/2017, 06/18/2016, Additional history exists [facility]- SDOH Screenings 01/16/2025 [facility]-Adult SDOH Screenings 01/16/2025 07/19/2024 [facility]-Influenza Vaccine (#1) 07/02/202508/17, 07/04/2020, 07/12/2018, Additional history exists HPV Vaccines [...] patient's age to complete this topic Insurance [facility] MEDICARE Advance Directives * Full Code (Latest Code Status on File) Date Activated Date Inactivated Comments 07/17/2024 10:22 PM 07/26/2024 4:37 PM Question Answer Comments Patient has decision-making capacity? Yes Care Teams Brick Mason Relationship Specialty Start Date End Date Sawyer Betancourt MD [address] [place] [address] PCP - General 07/17/24
--- OUTSIDE RECORDS SUMMARY | 2025-05-21 12:57 | XMS_ITS | Encounter Summary ---
Author Organization [facility] Address [address] [place] [address] Care Team Providers Care Inspector Canvas Products Name Role Phone Violette Benjamin MD Primary Care Provider + [phone] Provider, Historical Unavailable Unavailable Kolton Jarrell DO Unavailable [phone] Oralia Mei MD Unavailable [phone] Chad Antonio MD Unavailable [phone] Encounter Details Date Type Department Care Team (Late st Contact Info) Description 04/27/2019 Lab Results [facility] Physicians - Heart & Vascular, [address] [place] [address] oKlton Jarrell DO [address] [place] [address] [address] [place] [address] Social History Tobacco Use Types [...] documented as of this encounter Care Teams Inspector Canvas Products Relationship Specialty Start Date End Date Violette Benjamin MD [address] [place] [address] PCP - General Family Medicine 08/05/18 Provider, Historical 12/12/20 Kolton Jarrell DO [address] [place] [address] Advanced Heart Failure/Transplant 12/23/20 Oralia Mei MD [address] [place] [address] Emergency Medicine 12/25/20 Chad Antonio MD [address] [place] [address] Family Medicine 07/02/22 documented as of this encounter
--- OUTSIDE RECORDS SUMMARY | 2025-05-21 12:57 | XMS_ITS | Encounter Summary ---
Author Organization [facility] Address [address] [place] [address] Care Team Providers Care Prosthetic Lab Technician Name Role Phone Violette Benjamin MD Primary Care Provider + [phone] Provider, Historical Unavailable Unavailable Kolton Jarrell DO Unavailable [phone] Oralia Mei MD Unavailable [phone] Chad Antonio MD Unavailable [phone] Reason for Visit * Reason Comments Medications Refill Encounter Details Date Type Department Care Team (Late st Contact Info) Description 08/02/2024 Refill [facility] Physicians - Primary Care, Alyssia Cardona [address] [place] [address] [place] [address] Violette Benjamin MD [address] [facility] [place] [address] Medications Refill Social History Tobacco Use Types [...] [employer] [facility]MA - 08/02/2024 3:25 PM EDT [facility] PRESCRIPTION REFILL REQUEST Medication(s) Dates Last [...] in the morning. (Patient Preferred Pharmacy List): [facility] [place] [address] [phone] [place] [address] Hours: Not open 24 hours documented in this encounter Plan of Treatment Not on file documented as of this encounter Visit Diagnoses Not on filedocumented in this encounter Additional Health Concerns Assessment Noted Time PHQ-9 Depression Total Score: 1 07/19/20 23 12:17 PM EDT documented as of this encounter Care Teams Prosthetic Lab Technician Relationship Specialty Start Date End Date Violette Benjamin MD [address] [place], [place] [id number] PCP - General Family Medicine 08/05/18 Provider, Historical 12/12/20 Kolton Jarrell DO [address] [place], [place] [address] Advanced Heart Failure/Transplant 12/23/20 Oralia Mei MD [address] [place] [address] Emergency Medicine 12/25/20 Chad Antonio MD [address] [place], [place] [address] Family Medicine 07/02/22 documented as of this encounter
--- OUTSIDE RECORDS SUMMARY | 2025-05-21 12:57 | XMS_ITS | Encounter Summary ---
Author Organization [facility] Address [address] [place] [address] Care Team Providers Care Policy Writer Sales Name Role Phone Violette Benjamin MD Primary Care Provider + [phone] Provider, Historical Unavailable Unavailable Kolton Jarrell DO Unavailable [phone] Oralia Mei MD Unavailable [phone] Chad Antonio MD Unavailable [phone] Reason for Visit * Reason Comments Medications Refill Encounter Details Date Type Department Care Team (Late st Contact Info) Description 04/21/2023 Refill [facility] Physicians - Primary CareAlyssia [address] [place] [address] [place] [address] Dorothy Gómez MD [address] [place] [address] Medications Refill Social History Tobacco Use Types [...] Time PHQ-9 Depression Total Score: 1 07/02/20 1:41 PM EDT documented as of this encounter Care Teams Policy Writer Sales Relationship Specialty Start Date End Date Violette Benjamin MD [address] [facility], [place] [id number] PCP - General Family Medicine 08/05/18 Provider, Historical 12/12/20 Kolton Jarrell DO [address] [place] [address] Advanced Heart Failure/Transplant 12/23/20 Oralia Mei MD [address] [place] [address] Emergency Medicine 12/25/20 Chad Antonio MD [address] [facility], [place] [address] Family Medicine 07/02/22 documented as of this encounter
--- OUTSIDE RECORDS SUMMARY | 2025-05-21 12:57 | XMS_ITS | Encounter Summary ---
Author Organization [facility] Address [address] [place] [address] Care Team Providers Care Incident Response Coordinator Name Role Phone Violette Benjamin MD Primary Care Provider Provider, Historical Unavailable Unavailable Kolton Jarrell DO Unavailable [phone] Oralia Mei MD Unavailable [phone] Chad Antonio MD Unavailable [phone] Encounter Details Date Type Department Care Team (Late st Contact Info) Description 03/21/2019 Abstract [facility] Physicians - Heart & Vascular, [place] [address] [facility] [place] [address] Génesis Vergara, REN [address] [place] [address] Social History Tobacco Use Types Packs/Day Years [...] documented as of this encounter Care Teams Incident Response Coordinator Relationship Specialty Start Date End Date Violette Benjamin MD [address] [facility] [place] [address] PCP - General Family Medicine 08/05/18 Provider, Historical 12/12/20 Kolton Jarrell DO [address] [place] [address] Advanced Heart Failure/Transplant 12/23/20 Oralia Mei MD [address] [place] [address] Emergency Medicine 12/25/20 Chad Antonio MD [address] [place] [address] Family Medicine 07/02/22 documented as of this encounter
--- OUTSIDE RECORDS SUMMARY | 2025-05-21 12:57 | XMS_ITS | Clinical Summary ---
Author Organization [facility] Address [address] [place] [address] Care Team Providers Care Boat Cleaning Supervisor Name Role Phone Violette Benjamin MD Primary Care Provider [phone] Provider, Historical Unavailable Unavailable Kolton Jarrell DO Unavailable [phone] Oralia Mei MD Unavailable [phone] Chad Antonio MD Unavailable [phone] Allergies Active Allergy Reactions Criticality Noted Date [...] Active fluticasone (FLONASE) 50 mcg/actuation nasal spray Loretto 1 Loretto into nose. 7 Active calcium citrate/vitamin D3 (CALCIUM CITRATE + D PO) Take by mouth. Active cetirizine (ZYRTEC) 10 mg Tablet Take 10 mg by mouth daily. Active doxepin (SILENOR) 6 mg POIndications:Psy chophysiological insomnia Take 6 mg by mouth nightly at bedtime. [id number] Exp 03/2019 2 Packets # 8 tablets [...] 2 Active calcitonin, salmon, (FORTICAL) 200 unit/actuation Loret[place], Non-Aerosol INSTILL 1 SPRAY INTO ONE NOSTRIL [...] obstructive pulmonar y disease, unspecified COPD type ([facility]) 07/19/2023 Current use of exterminator anticoagulation 019 Assessment & Plan (03/21/2019 11:56 [...] vs patient prosthesis mismatch. ECHO here at [facility] in November 2019 shows similar Vmax [...] vs patient prosthesis mismatch. ECHO here at [facility] in November 2019 shows similar Vmax [...] I previously reviewed the ECHO images from [facility] from 2017. 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 Imaging from [facility] in November 2019 is similar to the above. -->repeat ECHO as needed based on symptoms Assessment & Plan (11/14/2019 5:10 PM EST): I previously reviewed the ECHO images from [facility]'s from 2017. 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 Imaging from [facility] in November 2019 is similar to the above. -->continue monitoring by echoes as needed for worsening symptoms. Assessment & Plan (03/21/2019 9:40 AM EDT): I reviewed the ECHO images from [facility]'s from 2017. 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 Moderate persistent reactive airway disease without complication 08/23/2018 History of GI bleed 08/23/2018 Mood disorder ([facility]) 06/16/2018 Chronic pain syndrome 06/16/2018 Fibromyalgia affecting [...] 07/02/2022, 09/02/2021, Additional history exists Influenza Vaccination (#1) 07/02/202508/17, 07/04/2020, 07/12/2018, Additional history exists Colonoscopy Discontinued [...] PM EDT) HCV Qual Interp Nonreactive Nonreactive [facility] Comment:IgG and IgM anti-HCV not detected. Signal/Cutoff 0.59 0.00 - 0.79 S/CO [facility] Serum 07/19/2023 1:08 PM EDT 07/19/2023 6:59 PM EDT us Violette Benjamin MD HEMATOLOGY ORDERABLES Terrie dillon Result Performing Organization Address City/State/[facility] Co de Phone Number [facility] [address] * LIPID PROFILE (07/19/2023 1:08 PM EDT) Cholesterol 162 125 - 199 mg/dL [facility] EXTERNAL LAB Comment: TOTAL CHOLESTEROL INTERPRETATION: Less than 200 mg/dL Desireable 200-239 mg/dL Borderline Greater or Equal to 240 mg/dL High LDL Calculated 68 0 - 100 mg/dL [facility] Comment: LDL CHOLESTEROL INTERPRETATION: [...] 8 PM EDT 07/19/2023 6:57 PM EDT Violette Benjamin MD CHEMISTRY ORDERABLES Final Result Performing Organization Address [facility] de Phone Number [facility] [address] * EXTERNAL MAMMOGRAM - SEE COMMENT (07/02/2016) Impressions [facility] - 07/02/2016 Negative ([id number]) ~ RECOMMENDATION: Routine screening mammogram in 1 [...] prior studies the most recent being 10-28-12. Historical Provider [facility] Final Result Performing Organization Address [facility] de Phone Number [facility] [address] [place] [address] * EXTERNAL COLONOSCOPY - SEE COMMENT (02/11/2015) [...] by mouth before meals and at bedtime us Historical Provider [facility] Final Result from Last 3 Months or Most Recently Relevant to Health Maintenance Insurance [facility] MEDICARE Care Teams Boat Cleaning Supervisor Relationship Specialty Start Date End Date Violette Benjamin MD [address] [place] [address] PCP - General Family Medicine 08/05/18 Provider, Historical 12/12/20 Kolton Jarrell DO [address] [place] [address] Advanced Heart Failure/Transplant 12/23/20 Oralia Mei MD [address] [place] [address] Emergency Medicine 12/25/20 Chad Antonio MD [address] [facility] [place] [address] Family Medicine 07/02/22
--- OUTSIDE RECORDS SUMMARY | 2025-05-21 12:57 | XMS_ITS | Encounter Summary ---
Author Organization [place] [address] Care Team Providers Care Vehicle Mechanic Name Role Phone Arboleda, Tremainemarilee Ward DO Primary Care Provider [phone] Mulu Clements RN Unavailable UnavailHelga Hall RN Unavailable Kev Ann MD Primary Care Provider [phone] Elda Hurt MD Primary Care Provider [phone] Violette Benjamin MD Primary Care Provider [phone] Encounter Details Date Type Department Care Team (Late st Contact Info) Description 11/04/2010 Orders Only SEP H&V [facility] [place] [facility] [address] [place] [address] Amilcar Ambrose MD [address] [place] [address] Social History Tobacco Use Types Packs/Day [...] prior to that practice using [facility] [employer] for Medical Records. Performing Provider: Amilcar Ambrose M.D., F.A.C.C. Amilcar Ambrose MD IMG ECHO ORDERABLES Final Re sult documented in this encounter Visit Diagnoses Not on filedocumented in this encounter Additional Health Concerns Infection Onset Date Last Indicated Resolved Time R/O COVID-19 01/02/2021 01/02/2021 01/02/2021 4:02 PM EST documented as of this encounter Care Teams Vehicle Mechanic Relationship Specialty Start Date End Date Tremaine Arboleda DO [address] [facility] [address] [place] [address] PCP - General 09/20/09 02/16/11 Kev [place] [address] PCP - General Internal Medicine 10/21/17 05/19/18 Elda Hurt MD [address] [place] [address] PCP - General Family Medicine 07/11/18 04/25/19 Violette Benjamin MD [address] [place] [id number] PCP - General Family Medicine 04/26/19 Mulu Clements, bit sander Team Registered Nurse 02/18/15 eHlga Armenta, RN Health Advocate Registered Nurse 02/20/1506/11 documented as of this encounter
--- OUTSIDE RECORDS SUMMARY | 2025-05-21 12:57 | XMS_ITS | Encounter Summary ---
Author Organization [facility] Address [address] [place] [address] Care Team Providers Care Quality Assurance Associate Name Role Phone Violette Benjamin MD Primary Care Provider + [phone] Provider, Historical Unavailable Unavailable Kolton Jarrell DO Unavailable [phone] Oralia Mei MD Unavailable [phone] Chad Antonio MD Unavailable [phone] Reason for Visit * Reason Comments Medications Refill Encounter Details Date Type Department Care Team (Late st Contact Info) Description 06/02/2023 Refill [facility] Physicians - Primary Care, Alyssia Cardona [address] [place] [address] [place] [address] Violette Benjamin MD [address] [place] [address] Medications Refill Social History Tobacco Use Types [...] documented as of this encounter Care Teams Quality Assurance Associate Relationship Specialty Start Date End Date Violette Benjamin MD [address] [place], [place] [address] PCP - General Family Medicine 08/05/18 Provider, Historical 12/12/20 Kolton Jarrell DO [address] [facility] [place] [address] Advanced Heart Failure/Transplant 12/23/20 Oralia Mei MD [address] [place] [address] Emergency Medicine 12/25/20 Chad Antonio MD [address] [facility] [place], [place] [address] Family Medicine 07/02/22 documented as of this encounter
--- OUTSIDE RECORDS SUMMARY | 2025-05-21 12:57 | XMS_ITS | Clinical Summary ---
Author Organization [facility] Address [address] [place] [address] Phone Care Team Providers Care Underwriting Sales Representative Name Role Phone Violette Benjamin MD Primary Care Provider [phone] Allergies Active Allergy Reactions Criticality Noted Date [...] e calcitonin, salmon, (FORTICAL) 200 unit/actuation Nasl [place], Non-AerosolIndic ations:Osteoporo sis 1 [place] by Nasal route daily. 3.7 mL 3 11/12/19 17 Active Additional Information Patient taking differently:1 [place] NasalDAILY PRN, Reason: Advised by Physician, Informant: [...] on 09/01/2022 fluticasone (FLONASE) 50 mcg/actuation Nasl [place], Suspension 1 [place] by Nasal route daily. 3 Bottle 3 11/23/19 17 Active Additional Information Patient taking differently:1 [place] NasalDAILY PRN, Reason: Advised by Physician, Informant: [...] Overview (11/18/2017): She has been on chronic [place] for years. Wanted to switch to something different. Tylenol #3 given. She complains they hurt her stomach, but was not able to produce unused medication to allow us to change medication for her. Suffered from early withdrawal symptoms. Assessment & Plan (11/18/2017 12:32 PM EST): Resume [place] - given 2 week supply to better [...] doing things? yes, desires to live in [place] Fall Risk Screening: Have you had 2 [...] conscious sedation; Surgeon: Ty Vallecillo MD; Location: [facility] END[facility]COPY; Service: Endoscopy COLONOSCOPY 02/11/2015 N/A Surgeon: Ty Vallecillo MD; Location: ED ENDOSCOPY; Service: Endoscopy CARDIAC VALVE REPLACEMENT EYE SURGERY 03/27/2016 Right RIGHT EYE YAG LASER IRIDECTOMY WITH ARGON ; Surgeon: Graeme Monroy MD; Location: [facility]; Service: Ophthalmology EYE SURGERY 06/12/2016 Left LEFT EYE YAG LASER IRIDECTOMY WITH ARGON ; Surgeon: Graeme Monroy MD; Location: [facility]; Service: Ophthalmology CARDIAC CATHETERIZATION Medical History Medical History Date Comments COPD (chronic obstructive pu lmonary disease) ([facility]) Acid reflux Arthritis Pneumonia hx ov Herniated disc multiple Dizzy spells Screening mammogram 2009 normal Panic attack 02/11/2015 Full code status 2015 Living will, counseling/discussion 2015 declines mcc vent support and long filler cigar roller machine nutrition via feeding tubes FINCH (dyspnea on [...] per Dr Ambrose CHF (congestive heart failure) ([facility]) not since heart valve replaced Fibromyalgia Osteoporosis [...] 0.6 oz pur e alcohol) [facility] Utilities Answer Date Recorded In the past [...] Answer Date Recorded PHQ-2 Score 0 03/24/2019 [facility] - Occupational Stress [...] money to get more. Never true 04/29/2024 [facility] IP Transportation Answer D ate Recorded In [...] season) 2024 10/21/2021, 02/10/2021, 01/13/2021 Influenza Vaccine (#1) 2025 2, 02/10/2022, 07/04/2020, Additional history exists Colon Cancer [...] [place] [employer] Medical Devices Implanted Type Area Manager Graphic Device Identifier Shelf Expiration Date Model / [...] AM EDT) Hep C Ab Negative Negative [facility] Blood specimen (specimen) UPPER LIMB STRUCTURE / Unknown 07/14/2016 11:13 AM EDT 07/14/2016 8:10 PM EDT us Pb Queen MD IMMUNOLOGY ORDERABLES Final Result Performing Organization Address City/State/[facility] Co de Phone Number [facility] [address] [place] [address] * ED EGD-COLONOSCOPY (02/11/2015 11:00 AM EDT) 02/11/2015 11:0 0 AM EDT Impressions [facility] - 02/11/2015 2:57 PM EDT Plan: Carafate 1 gram Take 1 gram by mouth before meals and at bedtime This section is an excerpt of the full report. us Ty Vallecillo MD GI PROCEDURE ORDERABLES Terrie l Result [facility] [address] [place] [address] * CT ANGIOGRAM CHEST W CONTRAST (02/08/2015 [...] most predominantupper lobe suspect for multifocal pneumonia. [facility]. Daniel Choi MD IM CT ORDERABLES Final Resu lt from Last 3 Months or Most Recently Relevant to Health Maintenance Insurance [employer]ARE * Guarantor: Felicia Thomas Account Type Relation to Patient Date of Phone Billing Address [place] Personal Family Self Advance Directives For more information, please contact: [phone] Documents on File Type Date Recorded Patient Tank Truck Loader Expl anation Advance Directives/DNR 09/17/2015 1:43 PM [...] 1:09 PM 11/12/2017 2:46 PM Care Teams Underwriting Sales Representative Relationship Specialty Start Date End Date Violette Benjamin MD PCP - General Family Medicine 04/26/19
--- OUTSIDE RECORDS SUMMARY | 2025-05-21 12:57 | XMS_ITS | Encounter Summary ---
Author Organization [facility] Address [address] [place] [address] Care Team Providers Care Power Shovel Operator Name Role Phone Violette Benjamin MD Primary Care Provider + [phone] Provider, Historical Unavailable Unavailable Kolton Jarrell DO Unavailable [phone] Oralia eMi MD Unavailable [phone] Chad Antonio MD Unavailable [phone] Reason for Visit * Reason Comments Medications Refill Encounter Details Date Type Department Care Team (Late st Contact Info) Description 09/01/2023 Refill [facility] Physicians - Heart & Vascular, [facility] [address] [place] [address] [place] [address] Kolton Jarrell DO [address] [place], [place] [id number] Medications Refill Social History Tobacco Use Types [...] documented as of this encounter Care Teams Power Shovel Operator Relationship Specialty Start Date End Date Violette Benjamin MD [address] [place] [facility] [address] PCP - General Family Medicine 08/05/18 Provider, Historical 12/12/20 Kolton Jarrell DO [address] [place] [address] Advanced Heart Failure/Transplant 12/23/20 Oralia Mei MD [address] [place] [address] Emergency Medicine 12/25/20 Chad Antonio MD [address] [facility] [address] Family Medicine 07/02/22 documented as of this encounter
--- OUTSIDE RECORDS SUMMARY | 2025-05-21 12:57 | XMS_ITS | Encounter Summary ---
Author Organization [place] Address [facility] [place] [address] Care Team Providers Care Glass Bulb Silverer Name Role Phone Mulu Clements RN Unavailable UnavailHelga Hall RN Unavailable Kev Ann MD Primary Care Provider [phone] Elda Hurt MD Primary Care Provider [phone] Violette Benjamin MD Primary Care Provider [phone] Reason for Referral * (Routine) - Closed Specialty Diagnoses / Procedures Referred By Contac t Referred To Contact Diagnoses Pathologic fracture of vertebrae, initial encounter Osteoporosis, unspecified Procedures IR GUIDED PERCUTANEOUS VERTEBROPLASTY THORACIC Chioma Fair PA-C Referral ID Status Reason Start Date Expiration Date Visits Re quested Visits Authorized [id number] Closed 09/24/2014 09/24/2015 1 1 Encounter Details Date Type Department Care Team (Latest Contact Info) Description 09/24/2014 Pre-Imaging Procedure EDG XRAY [facility] [address] [place] [id number] Chioma Fair PA-C Pathologic fracture of vertebrae, [...] Routine Pathologic fracture of vertebrae, initial encounter ([facility]) Osteoporosis 1 Occurrences starting 09/24/2014 until 09/24/2015 documented as of this encounter Visit Diagnoses Diagnosis Pathologic fracture of vertebrae, initial encounter- Primary Osteoporosis, unspecified documented in this encounter Additional Health Concerns Infection Onset Date Last Indicated Resolved Time R/O COVID-19 01/02/2021 01/02/2021 01/02/2021 4:02 PM EST documented as of this encounter Care Teams Glass Bulb Silverer Relationship Specialty Start Date End Date Kev Sosa MD [address] [place] [address] PCP - General Internal Medicine 10/21/17 05/19/18 Elda Hurt MD [address] [place] [address] PCP - General Family Medicine 07/11/18 04/25/19 Violette Benjamin MD [address] [place] [address] PCP - General Family Medicine 04/26/19 Mulu Clements, brownell operator Team Registered Nurse 02/18/15 Helga Armenta, REN Health Advocate Registered Nurse 02/20/1506/11 documented as of this encounter
--- OUTSIDE RECORDS SUMMARY | 2025-05-21 12:57 | XMS_ITS | Encounter Summary ---
Author Organization [facility] [address] Care Team Providers Care Customer Expert Name Role Phone Mulu Clements RN Unavailable UnavailHelga Hall RN Unavailable Kev Ann MD Primary Care Provider [phone] Elda Hurt MD Primary Care Provider [phone] Violette Benjamin MD Primary Care Provider [phone] Encounter Details Date Type Department Care Team (Latest Contact Info) Description 09/21/2014 Pre-Imaging Procedure MD Adult Med [address] [place], [place] [id number] Sarahy Boss RN Pathologic fracture of vertebrae, initial encounter ([facility]) (Primary Dx) Social History Tobacco Use Types [...] aching, sharp, shooting and stabbing Pain meds: [place] Do pain meds alleviate pain: No Exacerbating [...] aching, sharp, shooting and stabbing Pain meds: [place] Do pain meds alleviate pain: No Exacerbating [...] documented as of this encounter Care Teams Customer Expert Relationship Specialty Start Date End Date Kev Sosa MD [address] [place] [address] PCP - General Internal Medicine 10/21/17 05/19/18 Elda Hurt MD [address] [place] [address] PCP - General Family Medicine 07/11/18 04/25/19 Violette Benjamin MD [address] [place] [address] PCP - General Family Medicine 04/26/19 Mulu Clements, graduate studies dean Team Registered Nurse 02/18/15 Helga Armenta, REN Health Advocate Registered Nurse 02/20/1506/11 documented as of this encounter
--- OUTSIDE RECORDS SUMMARY | 2025-05-21 12:57 | XMS_ITS | Encounter Summary ---
Author Organization [facility] Address [address] [place] [address] Care Team Providers Care Lead Recreation Assistant Name Role Phone Violette Benjamin MD Primary Care Provider + [phone] Provider, Historical Unavailable Unavailable Kolton Jarrell DO Unavailable [phone] Oralia Mei MD Unavailable [phone] Chad Antonio MD Unavailable [phone] Reason for Visit * Reason Comments Medications Refill Encounter Details Date Type Department Care Team (Late st Contact Info) Description 06/01/2023 Refill [facility] Physicians - Primary CareAlyssia [address] [place] [address] [place] [address] Dorothy Gómez MD [address] [place] [address] Medications Refill Social History Tobacco Use Types [...] documented as of this encounter Care Teams Lead Recreation Assistant Relationship Specialty Start Date End Date Violette Benjamin MD [address] [place], [place] [id number] PCP - General Family Medicine 08/05/18 Provider, Historical 12/12/20 Kolton Jarrell DO [address] [place] [address] Advanced Heart Failure/Transplant 12/23/20 Oralia Mei MD [address] [place] [address] Emergency Medicine 12/25/20 Chad Antonio MD [address] [facility], [place] [id number] Family Medicine 07/02/22 documented as of this encounter
--- OUTSIDE RECORDS SUMMARY | 2025-05-21 12:57 | XMS_ITS | Encounter Summary ---
Author Organization [place] [address] Care Team Providers Care Truck Crane Operator Name Role Phone Arboleda Tremainemarilee Ward DO Primary Care Provider [phone] Mulu Clements RN Unavailable UnavailHelga Hall RN Unavailable Kev Ann MD Primary Care Provider [phone] Elda Hurt MD Primary Care Provider [phone] Violette Benjamin MD Primary Care Provider [phone] Encounter Details Date Type Department Care Team (Late st Contact Info) Description 10/17/2009 Orders Only SEP [facility] [place] [address] [place] [address] Zach Rosario MD [address] [place], [place] [address] [phone] (Fax) Social History Tobacco Use Types Packs/Day [...] a practice prior to that practice using [facility] for Medical Records. Performing Provider: Zach Mendez M.D. Zach Rosario MD IMG ECHO ORDERABLES Final Result documented in this encounter Visit Diagnoses Not on filedocumented in this encounter Additional Health Concerns Infection Onset Date Last Indicated Resolved Time R/O COVID-19 01/02/2021 01/02/2021 01/02/2021 4:02 PM EST documented as of this encounter Care Teams Truck Crane Operator Relationship Specialty Start Date End Date Tremaine Arboleda DO [address] [facility] [address] [place] [address] PCP - General 09/20/09 02/16/11 Kev Sosa MD [address] [place] [address] PCP - General Internal Medicine 10/21/17 05/19/18 Elda Hurt MD [address] [place], [place] [address] PCP - General Family Medicine 07/11/18 04/25/19 Violette Benjamin MD [address] [place] [address] PCP - General Family Medicine 04/26/19 Mulu Clements, faculty member Team Registered Nurse 02/18/15 Helga Armenta, REN Health Advocate Registered Nurse 02/20/1506/11 documented as of this encounter
--- OUTSIDE RECORDS SUMMARY | 2025-05-21 13:57 | XMS_ITS | CCD ---
Author Organization Unknown Care Team Providers Care Actimize Architect Name Role Phone Unavailable Primary Care Provider Unavailabl e Unavailable Chronic Care Management Unavaila ble Summary Purpose DataExchange Insurance Providers Payer name Policy type / Coverage type Covered constitution party ID Effective Begin Date Effective End Date MEDICARE [place] [id number] Unknown Unknown Family History Family History data not found Medication Administered No Medication Administered data Reason For Visit No Reason For Visit data Medical Equipment No Medical Equipment data Advance Directives No Advance Directive data
--- OUTSIDE RECORDS SUMMARY | 2025-05-21 13:57 | XMS_ITS | CCD ---
Author Organization Unknown Care Team Providers Care Lumber Straightened Name Role Phone Unavailable Primary Care Provider Unavailabl e Unavailable Chronic Care Management Unavaila ble Summary Purpose DataExchange Insurance Providers Payer name Policy type / Coverage type Covered libertarian ID Effective Begin Date Effective End Date MEDICARE [place] [id number] Unknown Unknown Family History Family History data not found Medication Administered No Medication Administered data Reason For Visit No Reason For Visit data Medical Equipment No Medical Equipment data Advance Directives No Advance Directive data
[2025-05-21 14:36] LABS: PHA INR Fingerstick 2.4 (0.9-1.1)
== END 2025-05-21 14:51 ==
LOC: ACC 12:55
PROVIDERS: PCP Family Medicine; Visit Provider Family Medicine
DX: Z95.2 Presence of prosthetic heart valve (principal)
CPT/HCPCS: 85610; 99211; G0463

== ENCOUNTER 2025-07-23 12:46 | Outpatient (CLI) | payer MEDICARE, SELFPAY ==
--- OUTSIDE RECORDS SUMMARY | 2025-07-23 12:49 | XMS_ITS | Encounter Summary ---
Author Organization [place] Address [facility] [place] [address] Care Team Providers Care Supervisory Investigative Specialist Name Role Phone Mulu Clements RN Unavailable UnavailHelga Hall RN Unavailable Kev Ann MD Primary Care Provider [phone] Elda Hurt MD Primary Care Provider [phone] Violette Benjamin MD Primary Care Provider [phone] Reason for Referral * (Routine) - Closed Specialty Diagnoses / Procedures Referred By Contac t Referred To Contact Diagnoses Pathologic fracture of vertebrae, initial encounter Osteoporosis, unspecified Procedures IR GUIDED PERCUTANEOUS VERTEBROPLASTY THORACIC Chioma Fair PA-C Referral ID Status Reason Start Date Expiration Date Visits Re quested Visits Authorized [id number] Closed 09/24/2014 09/24/2015 1 1 Encounter Details Date Type Department Care Team (Latest Contact Info) Description 09/24/2014 Pre-Imaging Procedure EDG XRAY [facility] [address] [place] [id number] Chioma Fair PA-C Pathologic fracture of vertebrae, [...] Routine Pathologic fracture of vertebrae, initial encounter ([facility]) Osteoporosis 1 Occurrences starting 09/24/2014 until 09/24/2015 documented as of this encounter Visit Diagnoses Diagnosis Pathologic fracture of vertebrae, initial encounter- Primary Osteoporosis, unspecified documented in this encounter Additional Health Concerns Infection Onset Date Last Indicated Resolved Time R/O COVID-19 01/02/2021 01/02/2021 01/02/2021 4:02 PM EST documented as of this encounter Care Teams Supervisory Investigative Specialist Relationship Specialty Start Date End Date Kev Sosa MD [address] [place] [address] PCP - General Internal Medicine 10/21/17 05/19/18 Elda Hurt MD [address] [place] [address] PCP - General Family Medicine 07/11/18 04/25/19 Violette Benjamin MD [address] [place] [address] PCP - General Family Medicine 04/26/19 Mulu Clements, employment and claims aide Team Registered Nurse 02/18/15 Helga Armenta, REN Health Advocate Registered Nurse 02/20/1506/11 documented as of this encounter
--- OUTSIDE RECORDS SUMMARY | 2025-07-23 12:49 | XMS_ITS | Clinical Summary ---
Author Organization [facility] Address [address] [place] [address] Care Team Providers Care Programmer Analyst Consultant Name Role Phone Sawyer Betancourt MD Primary Care Provider [phone] Allergies No known active allergies Medications warfarin [...] Active Problems Problem Noted Date Diagnosed Date Age-related physical debility 07/24/2024 Overview (07/24/2024): Complicates care and rehabilitation Elevated AST (SGOT) 07/18/2024 Overview (07/18/2024): Incidental finding Follow up with PCP for ongoing care termite exterminator helper (current) use of anticoagulants 2023 Overview (07/23/2024): Daily Warfarin -INR monitoring and dosing per pharmacy Lovenox bridging started INR goal 2.5-3.5 (HFpEF) heart failure with preserved ejection fr action 07/18/2024 Overview (07/18/2024): Resume home meds Last Echo: normal 05/04/24 A-fib 07/18/2024 Overview (07/19/2024): Hx of Anemia 07/18/2024 Overview (07/18/2024): Monitor/trend H&H stable; no transfusion at this time Lumbar transverse process fracture 07/17/2024 Overview (07/17/2024): T12 - L3 spinous process fractures Multimodal pain control, no surgical intervention Hx of heart valve replacement with mechanical va lve 07/17/2024 Overview (07/25/2024): Home warfarin. INR goal 2.5-3.5 Aortic and mitral Resolved Problems Problem Noted Date Diagnosed Date Resolved Date Cellulitis 07/26/2024 07/22/2025 Overview (07/26/2024): Noted on exam 07/25 Unable to express pus from Doxy 100 mg twice daily X 5 days Follow-up with PCP as soon as possible for further recommendation Slow transit constipation 07/20/2024 Overview (07/23/2024): Patient unclear of when last bowel movement was but reportedly greater than 1 week ago. Distention present, nausea Bowel regimen CTM Hypokalemia 07/18/2024 07/21/2024 Overview (07/18/2024): Replete as needed Right hip pain 07/18/2024 07/22/2025 Overview (07/18/2024): NO acute fractures observed on imaging Repeat imaging as necessary if persistent Fall 07/17/2024 07/22/2025 Overview (07/21/2024): Inciting traumatic event SGT 2 Admit Tertiary on 07/18 Social History Tobacco Use Types Packs/Day Years [...] place to sleep or slept in a correction (including now)? No 07/19/2024 Utilities Answer Date [...] Mass Index - - Plan of Treatment Not on file Insurance [employer] Advance Directives * Full Code (Latest Code Status on File) Date Activated Date Inactivated Comments 07/17/2024 10:22 PM 07/26/2024 4:37 PM Question Answer Comments Patient has decision-making capacity? Yes Care Teams Programmer Analyst Consultant Relationship Specialty Start Date End Date Sawyer Betancourt MD [address] [place] [address] PCP - General 07/17/24
--- OUTSIDE RECORDS SUMMARY | 2025-07-23 12:49 | XMS_ITS | Clinical Summary ---
Author Organization [facility] Address [address] [place] [address] Phone Care Team Providers Care Automation Driver Name Role Phone Violette Benjamin MD Primary Care Provider [phone] Allergies Active Allergy Reactions Criticality Noted Date [...] every 4 hours as needed for Pain. Active calcitonin, salmon, (FORTICAL) 200 unit/actuation Nasl [place], Non-AerosolIndi cations:Osteopo rosis 1 [place] by Nasal route daily. 3.7 mL 3 11/12/19 17 Active Additional Information Patient taking differently:1 [place] NasalDAILY PRN, Reason: Advised by Physician, Informant: Self/Patient, Reported on 09/01/2022 sucralfate (CARAFATE) 1 gram Oral TabletIndicatio ns:Angiodysplas ia of stomach with hemorrhage Take 1 Tab [...] on 09/01/2022 fluticasone (FLONASE) 50 mcg/actuation Nasl [place], Suspension 1 [place] by Nasal route daily. 3 Bottle 3 11/23/19 17 Active Additional Information Patient taking differently:1 [place] NasalDAILY PRN, Reason: Advised by Physician, Informant: Self/Patient, Reported on 09/01/2022 budesonide-form oterol (SYMBICORT) 160-4.5 mcg/actuation Inhl HFA Aerosol InhalerIndicati ons:COPD with chronic bronchitis (HCC) Inhale 2 Puffs [...] 17 Active oxybutynin (DITROPAN) 5 mg Oral TabletIndicatio ns:Mixed incontinence Take 1 Tab by mouth 3 times daily. 270 Tab 3 09/24/20 17 Active omeprazole (PRILOSEC) 40 mg Oral Capsule, Delayed Release(E.C.) Take 40 mg by mouth every morning. Active albuterol-iprat ropium (DUO-NEB) 0.5 mg-3 mg(2.5 mg base)/3 mL Inhl Solution for Nebulization Take 3 mL by nebulization 0800, 1200, 1600, 2000. 120 Vial 11 02/15/20 18 Active losartan (COZAAR) 25 mg Oral TabletIndicatio ns:Essential hypertension Take 1 Tab by mouth nightly. 90 Tab 3 07/11/20 18 Active fUROsemide (LASIX) 40 mg Oral TabletIndicatio ns:Mitral valve replaced,S/P aortic valve replacement,Irr egular heart beat,Mitral valve insufficiency, unspecified etiology Take [...] 24 Active atorvastatin (LIPITOR) 10 mg Oral TabletIndicatio ns:Dyslipidemia Take 1 Tablet by mouth nightly. 30 Tablet 05/04/20 24 Active potassium chloride SA (KLOR-CON M) 10 mEq Oral Tab Sust.Rel. Particle/Nimisha l Take 1 Tablet by mouth 2 times daily. 60 Tablet 05/04/20 24 Active calcium carbonate/vitam in D3 (CALCIUM 600 + D,3, ORAL) Take by mouth daily. 022 Discontin ued(Patie nt discharge ) Active Problems Patient Care Coordination No te [...] Overview (11/18/2017): She has been on chronic Dovray for years. Wanted to switch to something different. Tylenol #3 given. She complains they hurt her stomach, but was not able to produce unused medication to allow us to change medication for her. Suffered from early withdrawal symptoms. Assessment & Plan (11/18/2017 12:32 PM EST): Resume Dovray - given 2 week supply to better [...] doing things? yes, desires to live in [place] Fall Risk Screening: Have you had 2 [...] conscious sedation; Surgeon: Ty Vallecillo MD; Location: [facility]; Service: Endoscopy COLONOSCOPY 02/11/2015 N/A Surgeon: Ty Vallecillo MD; Location: [facility]; Service: Endoscopy CARDIAC VALVE REPLACEMENT EYE SURGERY 03/27/2016 Right RIGHT EYE YAG LASER IRIDECTOMY WITH ARGON ; Surgeon: Graeme Monroy MD; Location: [facility]; Service: Ophthalmology EYE SURGERY 06/12/2016 Left LEFT EYE YAG LASER IRIDECTOMY WITH ARGON ; Surgeon: Graeme Monroy MD; Location: [facility]; Service: Ophthalmology CARDIAC CATHETERIZATION Medical History Medical History Date Comments COPD (chronic obstructive pu lmonary disease) (HCC) Acid reflux Arthritis Pneumonia hx ov Herniated disc multiple Dizzy spells Screening mammogram 2009 normal Panic attack 02/11/2015 Full code status 2015 Living will, counseling/discussion 2015 declines technician terminal and repeater vent support and technician terminal and repeater nutrition via feeding tubes FINCH (dyspnea on [...] per Dr Ambrose CHF (congestive heart failure) (HCC) not since heart valve replaced Fibromyalgia Osteoporosis [...] drink = 0.6 oz pur e alcohol) [facility] Utilities Answer Date Recorded In the past [...] Answer Date Recorded PHQ-2 Score 0 03/24/2019 [facility] of Occupat ional Health - Occupational Stress [...] money to get more. Never true 04/29/2024 [facility] IP Transportation Answer D ate Recorded In [...] 2012 Zoster (2 of 3) 07/16/2015 05/21/2015 RSV or 60+ (1 - 1-dose 75+ series) 2022 COVID-19 Vaccine ( - season) 2025 10/21/2021, 02/10/2021, 01/13/2021 Influenza Vaccine (#1) 2025 , 02/10/2022, 07/04/2020, Additional history exists Low Dose Lung Cancer Screening Discontinued 02/08/2015 Colon Cancer Screening Discontinued Colonoscopy Discontinued 02/11/2015, [...] an ideal body weight General No Юлия Hargrove CCMA Stay Tobacco Free Lifestyle No Юлия Hargrove CCMA Medical Devices Implanted Type Area Cut Plug Packer Device Identifier Shelf Expiration Date Model / [...] AM EDT) Hep C Ab Negative Negative [facility] Blood specimen (specimen) UPPER LIMB STRUCTURE / Unknown 07/14/2016 11:13 AM EDT 07/14/2016 8:10 PM EDT us Pb Queen MD IMMUNOLOGY ORDERABLES Final Result [facility] [address] [place] [address] * [facility] EGD-COLONOSCOPY (02/11/2015 11:00 AM EDT) 02/11/2015 11:0 0 AM EDT Impressions [facility] - 02/11/2015 2:57 PM EDT Plan: Carafate 1 gram Take 1 gram by mouth before meals and at bedtime This section is an excerpt of the full report. us Ty Vallecillo MD GI PROCEDURE ORDERABLES Terrie wilma Result [facility] [address] [place] [address] * CT ANGIOGRAM CHEST W CONTRAST (02/08/2015 [...] 02/08/2015 CT angiography the chest contrast date 02/08/2015 [...] most predominantupper lobe suspect for multifocal pneumonia. [facility] IM CT ORDERABLES Final Resu lt from Last 3 Months or Most Recently Relevant to Health Maintenance Insurance [employer] MEDICARE * Guarantor: Felicia Thomas Account Type Relation to Patient Date of Phone Billing Address [place] Personal Family Self Advance Directives For more information, please contact: [phone] Documents on File Type Date Recorded Patient Wharf Builder Expl anation Advance Directives/DNR 09/17/2015 1:43 PM [...] 1:09 PM 11/12/2017 2:46 PM Care Teams Automation Driver Relationship Specialty Start Date End Date Violette Benjamin MD PCP - General Family Medicine 04/26/19
--- OUTSIDE RECORDS SUMMARY | 2025-07-23 12:49 | XMS_ITS | Encounter Summary ---
Author Organization [place] [address] Care Team Providers Care Game Tester Name Role Phone Mulu Clements RN Unavailable UnavailHelga Hall RN Unavailable Kev Ann MD Primary Care Provider [phone] Elda Hurt MD Primary Care Provider [phone] Violette Benjamin MD Primary Care Provider [phone] Reason for Referral * MRI/CAT Scan (Routine) - Closed Specialty Diagnoses / Procedures Referred By Contac t Referred To Contact Radiology Diagnoses Pathologic fracture of vertebrae, with delayed healing, subsequent encounter Procedures MRI THORACIC SPINE WO CONTRAST Mehrdad Webster MD Phone: tel: fax: Referral ID Status Reason Start Date Expiration Date Visits Re quested Visits Authorized [id number] Closed 11/07/2014 11/07/2015 1 1 Encounter Details Date Type Department Care Team (Latest Contact Info) Description 11/07/2014 Pre-Imaging Procedure Adult Med [address] [place], [place] [id number] Sarahy Boss, REN Pathologic fracture of vertebrae, [...] documented as of this encounter Care Teams Game Tester Relationship Specialty Start Date End Date Kev Sosa MD [address] [place] [address] PCP - General Internal Medicine 10/21/17 05/19/18 Elda Hurt MD [address] [place] [address] PCP - General Family Medicine 07/11/18 04/25/19 Violette Benjamin MD [address] [place] [address] PCP - General Family Medicine 04/26/19 Mulu Clements, abrasive sawyer Team Registered Nurse 02/18/15 Helga Armenta, REN Health Advocate Registered Nurse 02/20/1506/11 documented as of this encounter
--- OUTSIDE RECORDS SUMMARY | 2025-07-23 12:49 | XMS_ITS | Encounter Summary ---
Author Organization [place] [address] Care Team Providers Care Pickle Sorter Name Role Phone Mulu Clements RN Unavailable UnavailHelga Hall RN Unavailable Kev Ann MD Primary Care Provider [phone] Elda Hurt MD Primary Care Provider [phone] Violette Benjamin MD Primary Care Provider [phone] Encounter Details Date Type Department Care Team (Latest Contact Info) Description 09/21/2014 Pre-Imaging Procedure MD Adult Med [address] [place], [place] [id number] Sarahy Boss RN Pathologic fracture of vertebrae, initial encounter ([facility]) (Primary Dx) Social History Tobacco Use Types [...] aching, sharp, shooting and stabbing Pain meds: [place] Do pain meds alleviate pain: No Exacerbating [...] aching, sharp, shooting and stabbing Pain meds: [place] Do pain meds alleviate pain: No Exacerbating [...] documented as of this encounter Care Teams Pickle Sorter Relationship Specialty Start Date End Date Kev Sosa MD [address] [place] [address] PCP - General Internal Medicine 10/21/17 05/19/18 Elda Hurt MD [address] [place] [address] PCP - General Family Medicine 07/11/18 04/25/19 Violette Benjamin MD [address] [place] [address] PCP - General Family Medicine 04/26/19 Mulu Clements, purchasing intern Team Registered Nurse 02/18/15 Helga Armenta, REN Health Advocate Registered Nurse 02/20/1506/11 documented as of this encounter
--- OUTSIDE RECORDS SUMMARY | 2025-07-23 12:50 | XMS_ITS | Encounter Summary ---
Author Organization [place] [address] Care Team Providers Care Chandelier Maker Name Role Phone Arboleda Tremainemarilee Ward DO Primary Care Provider [phone] Mulu Clements RN Unavailable UnavailHelga Hall RN Unavailable Kev Ann MD Primary Care Provider [phone] Elda Hurt MD Primary Care Provider [phone] Violette Benjamin MD Primary Care Provider [phone] Encounter Details Date Type Department Care Team (Late st Contact Info) Description 10/17/2009 Orders Only SEP H&V [facility] [place] [address] [place] [address] Zach Rosario MD [address] [place], [place] [id number] [phone] (Fax) Social History Tobacco Use Types Packs/Day [...] a practice prior to that practice using [facility] for Medical Records. Performing Provider: Zach Mendez M.D. Zach Rosario MD IMG ECHO ORDERABLES Final Result documented in this encounter Visit Diagnoses Not on filedocumented in this encounter Additional Health Concerns Infection Onset Date Last Indicated Resolved Time R/O COVID-19 01/02/2021 01/02/2021 01/02/2021 4:02 PM EST documented as of this encounter Care Teams Chandelier Maker Relationship Specialty Start Date End Date Tremaine Arboleda DO [address] [facility] [address] [place] [address] PCP - General 09/20/09 02/16/11 Kev Sosa MD [address] [place] [address] PCP - General Internal Medicine 10/21/17 05/19/18 Elda Hurt MD [address] [place], [place] [id number] PCP - General Family Medicine 07/11/18 04/25/19 Violette Benjamin MD [address] [place] [address] PCP - General Family Medicine 04/26/19 Mulu Clements, health and safety specialist Team Registered Nurse 02/18/15 Helga Armenta, REN Health Advocate Registered Nurse 02/20/1506/11 documented as of this encounter
--- OUTSIDE RECORDS SUMMARY | 2025-07-23 12:50 | XMS_ITS | Encounter Summary ---
Author Organization [place] [address] Care Team Providers Care Hoop Punch And Coiler Operator Helper Name Role Phone Arboleda, Tremainemarilee Ward DO Primary Care Provider [phone] Mulu Clements RN Unavailable UnavailHelga Hall RN Unavailable Kev Ann MD Primary Care Provider [phone] Elda Hurt MD Primary Care Provider [phone] Violette Benjamin MD Primary Care Provider [phone] Encounter Details Date Type Department Care Team (Late st Contact Info) Description 11/04/2010 Orders Only SEP H&V [facility] [place] [address] [place] [address] Amilcar Ambrose MD [address] [place] [address] Social History Tobacco Use Types Packs/Day [...] a practice prior to that practice using [facility] [employer] for Medical Records. Performing Provider: Amilcar Ambrose M.D., F.A.C.C. Amilcar Ambrose MD IMG ECHO ORDERABLES Final Re sult documented in this encounter Visit Diagnoses Not on filedocumented in this encounter Additional Health Concerns Infection Onset Date Last Indicated Resolved Time R/O COVID-19 01/02/2021 01/02/2021 01/02/2021 4:02 PM EST documented as of this encounter Care Teams Hoop Punch And Coiler Operator Helper Relationship Specialty Start Date End Date Tremaine Arboleda DO [address] [email or web address] [address] [place] [address] PCP - General 09/20/09 02/16/[address] [place] [address] PCP - General Internal Medicine 10/21/17 05/19/18 Elda Hurt MD [address] [place] [address] PCP - General Family Medicine 07/11/18 04/25/19 Violette Benjamin MD [address] [place] [id number] PCP - General Family Medicine 04/26/19 Mulu Clements, test kitchen home economist Team Registered Nurse 02/18/15 Helga Armenta, RN Health Advocate Registered Nurse 02/20/1506/11 documented as of this encounter
[2025-07-23 13:33] LABS: PHA INR Fingerstick 2.4 (0.9-1.1)
--- OUTSIDE RECORDS SUMMARY | 2025-07-23 13:49 | XMS_ITS | CCD ---
Author Organization Unknown Care Team Providers Care Bleacher [employer] Name Role Phone Unavailable Primary Care Provider Unavailabl e Unavailable Chronic Care Management Unavaila ble Summary Purpose DataExchange Insurance Providers Payer name Policy type / Coverage type Covered green party ID Effective Begin Date Effective End Date MEDICARE [place] [id number] Unknown Unknown Family History Family History data not found Medication Administered No Medication Administered data Reason For Visit No Reason For Visit data Medical Equipment No Medical Equipment data Advance Directives No Advance Directive data
== END 2025-07-23 13:35 ==
LOC: ACC 12:48
PROVIDERS: PCP Family Medicine; Visit Provider Family Medicine
DX: Z79.01 Long term (current) use of anticoagulants (principal); Z95.2 Presence of prosthetic heart valve
CPT/HCPCS: 85610; 99211; G0463

== ENCOUNTER 2025-10-18 11:21 | Outpatient (CLI) | payer MEDICARE, SELFPAY ==
--- OUTSIDE RECORDS SUMMARY | 2025-10-18 12:23 | XMS_ITS | Encounter Summary ---
Author Organization [facility] Address [facility] [place] [address] Care Team Providers Care Scrap Kettle Tender Name Role Phone Mulu Clements RN Unavailable Unavaila Helga Wallace RN Unavailable Kev Ann MD Primary Care Provider [phone] Elda Hurt MD Primary Care Provider [phone] Violette Benjamin MD Primary Care Provider [phone] Reason for Referral * (Routine) - Closed Specialty Diagnoses / Procedures Referred By Contac t Referred To Contact Diagnoses Pathologic fracture of vertebrae, initial encounter Osteoporosis, unspecified Procedures IR GUIDED PERCUTANEOUS VERTEBROPLASTY THORACIC Chioma Fair PA-C Referral ID Status Reason Start Date Expiration Date Visits Re quested Visits Authorized [id number] Closed 09/24/2014 09/24/2015 1 1 Encounter Details Date Type Department Care Team (Latest Contact Info) Description 09/24/2014 Pre-Imaging Procedure EDG XRAY [facility] [address] [place] [id number] Chioma Fair PA-C Pathologic fracture of vertebrae, [...] Routine Pathologic fracture of vertebrae, initial encounter [facility]) Osteoporosis 1 Occurrences starting 09/24/2014 until 09/24/2015 documented as of this encounter Visit Diagnoses Diagnosis Pathologic fracture of vertebrae, initial encounter- Primary Osteoporosis, unspecified documented in this encounter Additional Health Concerns Infection Onset Date Last Indicated Resolved Time R/O COVID-19 01/02/2021 01/02/2021 01/02/2021 4:02 PM EST documented as of this encounter Care Teams Scrap Kettle Tender Relationship Specialty Start Date End Date Kev Sosa MD [address] [place] [address] PCP - General Internal Medicine 10/21/17 05/19/18 Elda Hurt MD [address] [place] [address] PCP - General Family Medicine 07/11/18 04/25/19 Violette Benjamin MD [address] [place] [address] PCP - General Family Medicine 04/26/19 Mulu Clements, emt dispatcher Team Registered Nurse 02/18/15 Helga Armenta, REN Health Advocate Registered Nurse 02/20/1506/11 documented as of this encounter
--- OUTSIDE RECORDS SUMMARY | 2025-10-18 12:23 | XMS_ITS | Encounter Summary ---
Author Organization [facility] Address [address] [place] [address] Care Team Providers Care Screen Making Supervisor Name Role Phone Violette Benjamin MD Primary Care Provider + [phone] Provider, Historical Unavailable Unavailable Kolton Jarrell DO Unavailable [phone] Oralia Mei MD Unavailable [phone] Chad Antonio MD Unavailable [phone] Encounter Details Date Type Department Care Team (Late st Contact Info) Description 04/27/2019 Lab Results [facility] Physicians - Heart & Vascular, [address] [place] [address] [place] [address] Kolton Jarrell DO [address] [place] [address] [address] [place] [address] Social History Tobacco Use Types [...] documented as of this encounter Care Teams Screen Making Supervisor Relationship Specialty Start Date End Date Violette Benjamin MD [address] [place] [facility] [address] PCP - General Family Medicine 08/05/18 Provider, Historical 12/12/20 Kolton Jarrell DO [address] [place] [address] Advanced Heart Failure/Transplant 12/23/20 Oralia Mei MD [address] [place] [address] Emergency Medicine 12/25/20 Chad Antonio MD [address] [place] [facility] [address] Family Medicine 07/02/22 documented as of this encounter
--- OUTSIDE RECORDS SUMMARY | 2025-10-18 12:23 | XMS_ITS | Encounter Summary ---
Author Organization [place] [address] Care Team Providers Care Resin Shaver Name Role Phone Mulu Clements RN Unavailable Unavaila Helga Wallace RN Unavailable UnaKev Nguyen MD Primary Care Provider [phone] Elda Hurt MD Primary Care Provider [phone] Violette Benjamin MD Primary Care Provider [phone] Reason for Referral * MRI/CAT Scan (Routine) - Closed Specialty Diagnoses / Procedures Referred By Contac t Referred To Contact Radiology Diagnoses Pathologic fracture of vertebrae, with delayed healing, subsequent encounter Procedures MRI THORACIC SPINE WO CONTRAST Mehrdad Webster MD Phone: tel: fax: Referral ID Status Reason Start Date Expiration Date Visits Re quested Visits Authorized [id number] Closed 11/07/2014 11/07/2015 1 1 Encounter Details Date Type Department Care Team (Latest Contact Info) Description 11/07/2014 Pre-Imaging Procedure Adult Med [address] [place], [place] [id number] Sarahy Boss, REN Pathologic fracture of vertebrae, [...] documented as of this encounter Care Teams Resin Shaver Relationship Specialty Start Date End Date Kev Sosa MD [address] [place] [address] PCP - General Internal Medicine 10/21/17 05/19/18 Elda Hurt MD [address] [email or web address] [address] PCP - General Family Medicine 07/11/18 04/25/19 Violette Benjamin MD [address] [email or web address] [address] PCP - General Family Medicine 04/26/19 Mulu Clements, field sales representative Team Registered Nurse 02/18/15 Helga Armenta, REN Health Advocate Registered Nurse 02/20/1506/11 documented as of this encounter
--- OUTSIDE RECORDS SUMMARY | 2025-10-18 12:23 | XMS_ITS | Clinical Summary ---
Author Organization [facility] Address [address] 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 No 07/19/2024 Utilities Answer Date [...] Patient has decision-making capacity? Yes Care Teams White Hat Hacker Relationship Specialty Start Date End Date Sawyer Betancourt MD [address] [place] [address] PCP - General 07/17/24
--- OUTSIDE RECORDS SUMMARY | 2025-10-18 12:23 | XMS_ITS | Encounter Summary ---
Author Organization [place] [address] Care Team Providers Care Technical Designer Name Role Phone ArboledaTremaine aaron Primary Care Provider [phone] Mulu Clements RN Unavailable Unavaila Helga Wallace RN Unavailable Kev Ann MD Primary Care Provider [phone] Elda Hurt MD Primary Care Provider [phone] Violette Benjamin MD Primary Care Provider [phone] Encounter Details Date Type Department Care Team (Late st Contact Info) Description 10/17/2009 Orders Only SEP H&V CV [place] [address] [place] [address] Zach Rosario MD [address] [place], [place] [address] [phone] (Fax) Social History Tobacco Use Types Packs/Day [...] a practice prior to that practice using [facility] for Medical Records. Performing Provider: Zach Mendez M.D. Zach Rosario MD IMG ECHO ORDERABLES Final Result documented in this encounter Visit Diagnoses Not on filedocumented in this encounter Additional Health Concerns Infection Onset Date Last Indicated Resolved Time R/O COVID-19 01/02/2021 01/02/2021 01/02/2021 4:02 PM EST documented as of this encounter Care Teams Technical Designer Relationship Specialty Start Date End Date Tremaine Arboleda DO [address] [facility] [address] [place] [address] PCP - General 09/20/09 02/16/11 Kev Sosa MD [address] [place] [address] PCP - General Internal Medicine 10/21/17 05/19/18 Elda Hurt MD [address] [place], [place] [address] PCP - General Family Medicine 07/11/18 04/25/19 Violette Benjamin MD [address] [place], [place] [address] PCP - General Family Medicine 04/26/19 Mulu Clements, tape deck installer Team Registered Nurse 02/18/15 Helga Armenta, REN Health Advocate Registered Nurse 02/20/1506/11 documented as of this encounter
--- OUTSIDE RECORDS SUMMARY | 2025-10-18 12:23 | XMS_ITS | Encounter Summary ---
Author Organization [facility] Address [address] [place] [address] Care Team Providers Care Branding Machine Operator Name Role Phone Violette Benjamin MD Primary Care Provider Provider, Historical Unavailable Unavailable Kolton Jarrell DO Unavailable [phone] Oralia Mei MD Unavailable [phone] Chad Antonio MD Unavailable [phone] Reason for Visit * Reason Comments Medications Refill Encounter Details Date Type Department Care Team (Late st Contact Info) Description 04/21/2023 Refill [facility] Physicians - Primary Care, Alyssia Cardona [address] [place] [address] [place] [address] Dorothy Gómez MD Medications Refill Social History Tobacco Use Types [...] documented as of this encounter Care Teams Branding Machine Operator Relationship Specialty Start Date End Date Violette Benjamin MD [address] [facility], [place] [id number] PCP - General Family Medicine 08/05/18 Provider, Historical 12/12/20 Kolton Jarrell DO [address] [place] [address] Advanced Heart Failure/Transplant 12/23/20 Oralia Mei MD [address] [place] [address] Emergency Medicine 12/25/20 Chad Antonio MD [address] [facility] [address] Family Medicine 07/02/22 documented as of this encounter
--- OUTSIDE RECORDS SUMMARY | 2025-10-18 12:23 | XMS_ITS | Clinical Summary ---
Author Organization [facility] Address [address] [place] [address] Phone Care Team Providers Care Draw Frame Operator Name Role Phone Violette Benjamin MD Primary Care Provider [phone] Allergies Active Allergy Reactions Criticality Noted Date [...] Active calcitonin, salmon, (FORTICAL) 200 unit/actuation Nasl [place], Non-AerosolIndi cations:Osteopo rosis 1 [place] by Nasal route daily. 3.7 mL 3 11/12/19 17 Active Additional Information Patient taking differently:1 [place] NasalDAILY PRN, Reason: Advised by Physician, Informant: [...] on 09/01/2022 fluticasone (FLONASE) 50 mcg/actuation Nasl [place], Suspension 1 [place] by Nasal route daily. 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 Wanted to switch to something different. Tylenol #3 given. She complains they hurt her stomach, but was not able to produce unused medication to allow us to change medication for her. Suffered from early withdrawal symptoms. Assessment & Plan (11/18/2017 12:32 PM EST): Resume Aw[place]aw - given 2 week supply to better [...] Leukocytosis 10/15/2017 11/18/2017 Exercise counseling 06/18/2016 06/29/20 17 Alcohol screening 06/18/2016 06/29/2017 Overview (06/18/2016): Does [...] doing things? yes, desires to live in [place] Fall Risk Screening: Have you had 2 [...] conscious sedation; Surgeon: Ty Vallecillo MD; Location: [facility]; Service: Endoscopy COLONOSCOPY 02/11/2015 N/A Surgeon: Ty Vallecillo MD; Location: [facility]; Service: Endoscopy CARDIAC VALVE REPLACEMENT EYE SURGERY 03/27/2016 Right RIGHT EYE YAG LASER IRIDECTOMY WITH ARGON ; Surgeon: Graeme Monroy MD; Location: [facility]; Service: Ophthalmology EYE SURGERY 06/12/2016 Left LEFT EYE YAG LASER IRIDECTOMY WITH ARGON ; Surgeon: Graeme Monroy MD; Location: [facility]; Service: Ophthalmology CARDIAC CATHETERIZATION Medical History Medical History Date Comments COPD (chronic obstructive pu lmonary disease) (HCC) Acid reflux Arthritis Pneumonia hx ov Herniated disc multiple Dizzy spells Screening mammogram 2009 normal Panic attack 02/11/2015 Full code status 2015 Living will, counseling/discussion 2015 declines associate professor of art vent support and associate professor of art nutrition via feeding tubes FINCH (dyspnea on [...] drink = 0.6 oz pur e alcohol) [facility] Utilities Answer Date Recorded In the [...] Answer Date Recorded PHQ-2 Score 0 03/24/2019 [facility] [place] [facility] - Occupational Stress [...] money to get more. Never true 04/29/2024 [facility] IP Transportation Answer D ate Recorded [...] Ectopic Multiple Livin g Live Births 1 11 01 1 Date Outcome GA Total Labor Labor/2nd/3rd Weight Sex Type Anes PTL Simrna A1 A5 Name Clin Term Last Filed [...] 75+ series) 2022 COVID-19 Vaccine ( season) 2025 10/21/2021, 02/10/2021, 01/13/2021 Influenza Vaccine (#1) 2025 2, 02/10/2022, 07/04/2020, Additional history exists Low Dose [...] [place] [facility] Medical Devices Implanted Type Area Senior Foreman Device Identifier Shelf Expiration Date Model / [...] AM EDT) Hep C Ab Negative Negative [facility] Blood specimen (specimen) UPPER LIMB STRUCTURE / Unknown 07/14/2016 11:13 AM EDT 07/14/2016 8:10 PM EDT us Pb Queen MD IMMUNOLOGY ORDERABLES Final Result [facility] [address] [place] [address] * GMED EGD-COLONOSCOPY (02/11/2015 11:00 AM EDT) 02/11/2015 11:0 0 AM EDT Impressions [facility] - 02/11/2015 2:57 PM EDT Plan: Carafate 1 gram Take 1 gram by mouth before meals and at bedtime This section is an excerpt of the full report. us Ty Vallecillo MD GI PROCEDURE ORDERABLES Terrie wilma Result [facility] [address] [place] [address] * CT ANGIOGRAM CHEST W CONTRAST (02/08/2015 [...] most predominantupper lobe suspect for multifocal pneumonia. Willie Choi MD IMG CT ORDERABLES Final Resu lt from Last 3 Months or Most Recently Relevant to Health Maintenance Insurance [employer] MEDICARE WE[employer] MEDICARE * Guarantor: Felicia Thomas Account Type Relation to Patient Date of Phone Billing Address [place] Personal Family Self Advance Directives For more information, please contact: [phone] Documents on File Type Date Recorded Patient Granite Cutter Expl anation Advance Directives/DNR 09/17/2015 1:43 PM [...] 1:09 PM 11/12/2017 2:46 PM Care Teams Draw Frame Operator Relationship Specialty Start Date End Date Violette Benjamin MD PCP - General Family Medicine 04/26/19
--- OUTSIDE RECORDS SUMMARY | 2025-10-18 12:23 | XMS_ITS | Encounter Summary ---
Author Organization [facility] Address [address] [place] [address] Care Team Providers Care Client Services Manager Name Role Phone Violette Benjamin MD Primary Care Provider + [phone] Provider, Historical Unavailable Unavailable Kolton Jarrell DO Unavailable [phone] Oralia Mei MD Unavailable [phone] Chad Antonio MD Unavailable [phone] Reason for Visit * Reason Comments Medications Refill Encounter Details Date Type Department Care Team (Late st Contact Info) Description 09/01/2023 Refill [facility] Physicians - Heart & Vascular, [address] [place] [address] Kolton Jarrell DO [address] [facility] [place], [place] [id number] Medications Refill Social History Tobacco Use Types [...] documented as of this encounter Care Teams Client Services Manager Relationship Specialty Start Date End Date Violette Benjamin MD [address] [facility] [place] [address] PCP - General Family Medicine 08/05/18 Provider, Historical 12/12/20 Kolton Jarrell DO [address] [place] [address] Advanced Heart Failure/Transplant 12/23/20 Oralia Mei MD [address] [place] [address] Emergency Medicine 12/25/20 Chad Antonio MD [address] [place] [address] Family Medicine 07/02/22 documented as of this encounter
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
--- OUTSIDE RECORDS SUMMARY | 2025-10-18 12:23 | XMS_ITS | Encounter Summary ---
Author Organization [facility] Address [address] [place] [address] Care Team Providers Care Cyber Security Consultant Name Role Phone Violette Benjamin MD Primary Care Provider + [phone] Provider, Historical Unavailable Unavailable Kolton Jarrell DO Unavailable [phone] Oralia Mei MD Unavailable [phone] Chad Antonio MD Unavailable [phone] Reason for Visit * Reason Comments Medications Refill Encounter Details Date Type Department Care Team (Late st Contact Info) Description 04/15/2022 Refill [facility] Physicians - Primary Care, Alyssia Cardona [address] [place] [address] [place] [address] Violette Benjamin MD [address] [facility] [place] [address] Medications Refill Social History Tobacco Use Types [...] documented as of this encounter Care Teams Cyber Security Consultant Relationship Specialty Start Date End Date Violette Benjamin MD [address] [facility], [place] [id number] PCP - General Family Medicine 08/05/18 Provider, Historical 12/12/20 Kolton Jarrell DO [address] [facility] [place] [address] Advanced Heart Failure/Transplant 12/23/20 Oralia Mei MD [address] [place] [address] Emergency Medicine 12/25/20 Chad Antonio MD [address] [facility] [place] [address] Family Medicine 07/02/22 documented as of this encounter
--- OUTSIDE RECORDS SUMMARY | 2025-10-18 12:23 | XMS_ITS | Encounter Summary ---
Author Organization [facility] Address [address] [place] [address] Care Team Providers Care Offshoring Manager Name Role Phone Violette Benjamin MD Primary Care Provider + [phone] Provider, Historical Unavailable Unavailable Kolton Jarrell DO Unavailable [phone] Oralia Mei MD Unavailable [phone] Chad Antonio MD Unavailable [phone] Encounter Details Date Type Department Care Team (Late st Contact Info) Description 03/21/2019 Abstract [facility] Physicians - Heart & Vascular, [place] [address] [place] [place] [address] Génesis Vergara, REN [address] [place] [address] Social History Tobacco Use Types Packs/Day [...] documented as of this encounter Care Teams Offshoring Manager Relationship Specialty Start Date End Date Violette Benjamin MD [address] [facility] [place] [facility] [place] [address] PCP - General Family Medicine 08/05/18 Provider, Historical 12/12/20 Kolton Jarrell DO [address] [place] [address] Advanced Heart Failure/Transplant 12/23/20 Oralia Mei MD [address] [place] [address] Emergency Medicine 12/25/20 Chad Antonio MD [address] [facility] [address] Family Medicine 07/02/22 documented as of this encounter
--- OUTSIDE RECORDS SUMMARY | 2025-10-18 12:23 | XMS_ITS | Encounter Summary ---
Author Organization [facility] Address [address] [place] [address] Care Team Providers Care Trim Mounter Name Role Phone Violette Benjamin MD Primary Care Provider + [phone] Provider, Historical Unavailable Unavailable Kolton Jarrell DO Unavailable [phone] Oralia Mei MD Unavailable [phone] Chad Antonio MD Unavailable [phone] Reason for Visit * Reason Comments Medications Refill Encounter Details Date Type Department Care Team (Late st Contact Info) Description 06/01/2023 Refill [facility] Physicians - Primary Care, Alyssia Cardona [address] [place] [address] [place] [address] Dorothy Gómez MD Medications Refill Social [...] documented as of this encounter Care Teams Trim Mounter Relationship Specialty Start Date End Date Violette Benjamin MD [address] [place], [place] [address] PCP - General Family Medicine 08/05/18 Provider, Historical 12/12/20 Kolton Jarrell DO [address] [place], [place] [address] Advanced Heart Failure/Transplant 12/23/20 Oralia Mei MD [address] [place] [address] Emergency Medicine 12/25/20 Chad Antonio MD [address] [place], [place] [address] Family Medicine 07/02/22 documented as of this encounter
--- OUTSIDE RECORDS SUMMARY | 2025-10-18 12:23 | XMS_ITS | Encounter Summary ---
Author Organization [facility] Address [address] [place] [address] Care Team Providers Care Professional Builder Name Role Phone Violette Benjamin MD Primary Care Provider + [phone] Provider, Historical Unavailable Unavailable Kolton Jarrell DO Unavailable [phone] Oralia Mei MD Unavailable [phone] Chad Antonio MD Unavailable [phone] Reason for Visit * Reason Comments Medications Refill Encounter Details Date Type Department Care Team (Late st Contact Info) Description 06/02/2023 Refill [facility] Physicians - Primary Care, Alyssia Cardona [address] [place] [address] [place] [address] Violette Benjamin MD [address] [facility] [place] [address] Medications Refill Social History Tobacco Use Types [...] documented as of this encounter Care Teams Professional Builder Relationship Specialty Start Date End Date Violette Benjamin MD [address] [place], [place] [id number] PCP - General Family Medicine 08/05/18 Provider, Historical 12/12/20 Kolton Jarrell DO [address] [facility] [place] [address] Advanced Heart Failure/Transplant 12/23/20 Oralia Mei MD [address] [place] [address] Emergency Medicine 12/25/20 Chad Antonio MD [address] [facility] [place], [place] [address] Family Medicine 07/02/22 documented as of this encounter
--- OUTSIDE RECORDS SUMMARY | 2025-10-18 12:23 | XMS_ITS | Encounter Summary ---
Author Organization [place] [address] Care Team Providers Care Packing And Wrapping Supervisor Name Role Phone ArboledaTremaine aaron Primary Care Provider + [phone] Mulu Clements RN Unavailable Unavaila Helga Wallace RN Unavailable UnavaKev Landers MD Primary Care Provider [phone] Elda Hurt MD Primary Care Provider [phone] Violette Benjamin MD Primary Care Provider [phone] Encounter Details Date Type Department Care Team (Late st Contact Info) Description 11/04/2010 Orders Only [facility] [address] [place] [address] Amilcar Ambrose MD [address] [place] [address] Social History Tobacco Use Types Packs/Day [...] a practice prior to that practice using [facility] for Medical Records. Performing Provider: Amilcar Ambrose M.D., F.A.C.C. Amilcar Ambrose MD IMG ECHO ORDERABLES Final Re sult documented in this encounter Visit Diagnoses Not on filedocumented in this encounter Additional Health Concerns Infection Onset Date Last Indicated Resolved Time R/O COVID-19 01/02/2021 01/02/2021 01/02/2021 4:02 PM EST documented as of this encounter Care Teams Packing And Wrapping Supervisor Relationship Specialty Start Date End Date Tremaine Arboleda DO [address] [facility] [address] [place] [address] PCP - General 09/20/09 02/16/11 Kev Sosa [place] [place] [id number] PCP - General Internal Medicine 10/21/17 05/19/18 Elda Hurt MD [address] [place] [address] PCP - General Family Medicine 07/11/18 04/25/19 Violette Benjamin MD [address] [place] [id number] PCP - General Family Medicine 04/26/19 Mulu Clements, working supervisor Team Registered Nurse 02/18/15 Helga Armenta, REN Health Advocate Registered Nurse 02/20/1506/11 documented as of this encounter
--- OUTSIDE RECORDS SUMMARY | 2025-10-18 12:24 | XMS_ITS | Clinical Summary ---
Author Organization [facility] Address [address] [place] [address] Care Team Providers Care Marine Painter Name Role Phone Violette Benjamin MD Primary Care Provider [phone] Provider, Historical Unavailable Unavailable Kolton Jarrell DO Unavailable [phone] Oralia Mei MD Unavailable [phone] Chad Antonio MD Unavailable [phone] Allergies Active Allergy Reactions Criticality Noted Date [...] Active fluticasone (FLONASE) 50 mcg/actuation nasal spray [place] 1 [place] into nose. 7 Active calcium citrate/vitamin D3 (CALCIUM CITRATE + D PO) Take by mouth. Active cetirizine (ZYRTEC) 10 mg Tablet Take 10 mg by mouth daily. Active doxepin (SILENOR) 6 mg POIndications:Psy chophysiological insomnia Take 6 mg by mouth nightly at bedtime. [address] Exp 03/2019 2 Packets # 8 tablets [...] 2 Active calcitonin, salmon, (FORTICAL) 200 unit/actuation [place], Non-Aerosol INSTILL 1 SPRAY INTO ONE NOSTRIL [...] obstructive pulmonar y disease, unspecified COPD type 07/19/2023 Current use of snf anticoagulation 019 Assessment & Plan (03/21/2019 11:56 [...] vs patient prosthesis mismatch. ECHO here at [facility] in November 2019 shows similar Vmax [...] vs patient prosthesis mismatch. ECHO here at [facility] in November 2019 shows similar Vmax [...] I previously reviewed the ECHO images from [facility] from 2017. 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 Imaging from [facility] in November 2019 is similar to the above. -->repeat ECHO as needed based on symptoms Assessment & Plan (11/14/2019 5:10 PM EST): I [facility] reviewed [facility] 2017. 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 Imaging from [facility] in November 2019 is similar to the above. -->continue monitoring by echoes as needed for worsening symptoms. Assessment & Plan (03/21/2019 9:40 AM EDT): I reviewed the [facility] 2017. 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 Signal/Cutoff 0.59 0.00 - 0.79 S/CO [facility] Serum 07/19/2023 1:08 PM EDT 07/19/2023 6:59 PM EDT us Violette Benjamin MD HEMATOLOGY ORDERABLES Terrie dillon Result [facility] [address] * LIPID PROFILE (07/19/2023 1:08 PM EDT) Cholesterol 162 125 - 199 mg/dL [facility] EXTERNAL LAB Comment: TOTAL CHOLESTEROL INTERPRETATION: Less than 200 mg/dL Desireable 200-239 mg/dL Borderline Greater or Equal to 240 mg/dL High LDL Calculated 68 0 - 100 mg/dL [facility] Comment: LDL CHOLESTEROL INTERPRETATION: [...] CHEMISTRY ORDERABLES Final Result Performing Organization Address [facility] de Phone Number [facility] [address] [place] [address], [facility] * EXTERNAL MAMMOGRAM - SEE COMMENT (07/02/2016) Impressions [facility] - 07/02/2016 Negative ([id number]) ~ RECOMMENDATION: Routine screening mammogram in 1 [...] studies the most recent being 10-28-12. Result [facility] Historical Provider [place] [facility] Final Result Performing Organization Address [facility] de Phone Number [facility] [address] [place] [address] * EXTERNAL COLONOSCOPY - SEE COMMENT (02/11/2015) [...] before meals and at bedtime Historical Provider [facility] Final Result from Last 3 Months or Most Recently Relevant to Health Maintenance Insurance [facility] MEDICARE Care Teams Marine Painter Relationship Specialty Start Date End Date Violette Benjamin MD [address] [place] [address] [place] [address] PCP - General Family Medicine 08/05/18 Provider, Historical 12/12/20 Kolton Jarrell DO [address] [facility] [place] [address] Advanced Heart Failure/Transplant 12/23/20 Oralia Mei MD [address] [place] [address] Emergency Medicine 12/25/20 Chad Antonio MD [address] [place] [address] [facility] 07/02/22
--- OUTSIDE RECORDS SUMMARY | 2025-10-18 12:24 | XMS_ITS | Encounter Summary ---
Author Organization [facility] Address [address] [place] [address] Care Team Providers Care Ict Sales Assistant Name Role Phone Violette Benjamin MD Primary Care Provider + [phone] Provider, Historical Unavailable Unavailable Kolton Jarrell DO Unavailable [phone] Oralia Mei MD Unavailable [phone] Chad Antonio MD Unavailable [phone] Reason for Visit * Reason Comments Medications Refill Encounter Details Date Type Department Care Team (Late st Contact Info) Description 08/02/2024 Refill [facility] Physicians - Primary Care, Alyssia Cardona [address] [place] [address] [place] [address] Violette Benjamin MD [address] [facility] [place] [address] Medications Refill Social History Tobacco Use Types [...] [facility] - 08/02/2024 3:25 PM EDT [facility] PRESCRIPTION REFILL REQUEST Medication(s) Dates Last [...] Pharmacy List): [facility] [place] [id number] [phone] [place] [address] Hours: Not open 24 hours documented in this encounter Plan of Treatment Not on file documented as of this encounter Visit Diagnoses Not on filedocumented in this encounter Additional Health Concerns Assessment Noted Time PHQ-9 Depression Total Score: 1 07/19/20 23 12:17 PM EDT documented as of this encounter Care Teams Ict Sales Assistant Relationship Specialty Start Date End Date Violette Benjamin MD [address] [place], [place] [id number] PCP - General Family Medicine 08/05/18 Provider, Historical 12/12/20 Kolton Jarrell DO [address] [place], [place] [id number] Advanced Heart Failure/Transplant 12/23/20 Oralia Mei MD [address] [place] [address] Emergency Medicine 12/25/20 Chad Antonio MD [address] [place], [place] [address] Family Medicine 07/02/22 documented as of this encounter
[2025-10-18 12:57] LABS: PHA INR Fingerstick 2.5 (0.9-1.1)
== END 2025-10-18 13:20 ==
LOC: ACC 11:21
PROVIDERS: PCP Family Medicine; Visit Provider Family Medicine
DX: Z79.01 Long term (current) use of anticoagulants (principal); Z95.2 Presence of prosthetic heart valve
CPT/HCPCS: 85610; 99211; G0463